=== PATIENT | female | born 1970 | race Caucasian/White ===

== ENCOUNTER 2020-07-06 16:56 | Emergency (ER) | payer OTHER, SELFPAY ==
[2020-07-06 17:00] VITALS: PULSE 115; RESP 18; O2SAT 99
--- NOTE | 2020-07-06 17:05 | CTR_ITS ---
PROCEDURE INFORMATION: Exam: CT Head Without Contrast Exam date and time: 07/06/2020 5:10 PM Age: 50 years old Clinical indication: Pain; Headache; Prior surgery; Additional info: PRITCHETT TECHNIQUE: Imaging protocol: Computed tomography of the head without contrast. Radiation optimization: All CT scans at this facility use at least one of these dose optimization techniques: automated exposure control; mA and/or kV adjustment per patient size (includes targeted exams where dose is matched to clinical indication); or iterative reconstruction. COMPARISON: CT Head wo IV contrast* [id number] 05/11/2019 9:20 PM RADIATION DOSE METRICS: Total DLP (mGy-cm): 561.5 FINDINGS: Brain: No acute intracranial hemorrhage, cerebral edema, or midline shift. Cerebral ventricles: No hydrocephalus. Bones/joints: No acute fracture. Paranasal sinuses: There is no acute sinusitis. Mastoid air cells: Visualized mastoid air cells are well aerated. Orbital cavity: Unremarkable as visualized. Vasculature: Aneurysm coils are noted in the right parasellar region. Soft tissues: Unremarkable. CT/CT head wo con* [id number] IMPRESSION: No acute intracranial abnormality. Radiation Dose CTDIVOL = (mGy): DLP = 561.5 (mGy-cm)
[2020-07-06 17:39] VITALS: BP 149/89; PULSE 115; RESP 20; O2SAT 98
[2020-07-06 17:45] LABS: Basophils % 0.4 %; Eosinophils % 0.5 %; Hematocrit 47.2 % (37.0-47.0); Hemoglobin 15.6 g/dL (11.5-15.3); Lymphocytes % 25.5 %; Mean Corpuscular HGB Conc 33.1 g/dL (30.0-36.0); Mean Corpuscular Hemoglobin 31.2 pg (28.0-34.0); Mean Corpuscular Volume 94.4 fL (81-99); Mean Platelet Volume 12.6 fL (7.4-10.4); Monocytes # 0.8 10^3/uL (0.2-0.9); Monocytes % 10.6 %; Neutrophils # 4.91 10^3/uL (1.8-7.7); Neutrophils % 62.9 %; Nucleated Red Blood Cells % 0 %; Platelet Count 139 10^3/cmm (130-400); Red Cell Distribution Width 13.2 % (12.1-15.1); White Blood Count 7.8 10^3/uL (4.0-10.0)
--- NOTE | 2020-07-06 17:47 | ED_ITS ---
HPI - Headache General: Chief Complaint: Headache Stated Complaint: HEAD PAIN/PREVIOUS ANEURISYM Time Seen by Provider: 07/06/20 17:25 Source: patient Mode of arrival: ambulatory Limitations: no limitations History of Present Illness: HPI Narrative: 50-year-old female has a history of a aneurysm roughly 3 years ago. States she started having a headache today got worse. States headache is now 9 out of 10. She had a coil placed for her aneurysm. She states she has an appointment in the morning with her neurosurgeon for an angiogram. She denies any worsening or improving factors. Denies any fever. Denies any vomiting or diarrhea. Associated symptoms: Deny chest pain, fever(s), nausea, rash or vomiting Review of Systems Const: Denies: fever(s), chills, body aches or change in appetite Eyes: Denies: blurry vision or eye discomfort ENMT: Denies: throat pain or dental pain Card: Denies: chest pain Resp: Denies: dyspnea GI: Denies: abdominal pain, nausea, vomiting or diarrhea : Denies: dysuria Musc: Denies: neck pain or back pain Skin/Breast: Denies: rash Neuro: Reports: headache(s) Psych: Denies: depression Jonnathan/Lymph: Denies: easy bruising All/Imm: Denies: urticaria Physical Exam Const: COMMON NORMALS: no acute distress, patient oriented x3 and healthy appearing HENMT: COMMON NORMALS: normocephalic and atraumatic HEAD & SCALP: normocephalic and atraumatic Eye: COMMON NORMALS: Equal, round and reactive pupils present and EOMs intact bilaterally PUPIL: Yes Equal, round and reactive pupils present Neck/C-Spine: COMMON NORMALS: full ROM and supple Chest: COMMONS NORMALS: normal inspection of the chest and normal palpation of entire chest wall Resp: COMMON NORMALS: normal respiratory effort, No retractions, No use of accessory muscles and clear to auscultation bilaterally AUSCULTATION: clear to auscultation bilaterally Cardio: COMMON NORMALS: regular rate, regular rhythm and No murmurs present (Cardio) RATE: regular rate RHYTHM: regular rhythm GI: COMMON NORMALS: Normal to inspection, nondistended, normoactive bowel sounds present, Soft to palpation, non-tender and no masses PALPATION: Yes Soft to palpation Extremity: COMMON NORMALS: normal to inspection and full ROM Neuro: COMMON NORMALS: patient oriented x3, moves all extremities and no focal motor deficits Psych: COMMON NORMALS: mental status grossly normal, Normal thought process present and cooperative THOUGHT PROCESS: Normal thought process present Skin: COMMON NORMALS: no rashes or lesions noted and no wounds GENERAL SKIN EXAM: no rashes or lesions noted Course Vital Signs: Vital signs: Vital Signs Pulse Rate 115 H 07/06/20 17:39 Respiratory Rate 20 H 07/06/20 17:39 Blood Pressure 149/89 07/06/20 17:39 Pulse Oximetry 98 07/06/20 17:39 MDM - Headache MDM Narrative: Medical decision making narrative: Patient presents here with a headache that is since resolved. Her CT here is normal. I offered CT angio to rule out aneurysmal bleed she refused states she feels improved and has an angiogram scheduled for the morning. She refusing other testing would like to go home and follow-up with her neurosurgeon. Her headache is resolved her blood pressure is normal. I informed if her headache returns she is return immediately. She understands agrees to plan. Lab Data: Labs: Lab Results 07/06/20 07/06/20 Range/Units 17:35 17:35 WBC 7.8 (4.0-10.0) 10^3/ uL RBC 5.00 (4.1-5.3) 10^6/u L Hgb 15.6 H (11.5-15.3) g/dL Hct 47.2 H (37.0-47.0) % MCV 94.4 (81-99) fL MCH 31.2 (28.0-34.0) pg MCHC 33.1 (30.0-36.0) g/dL RDW 13.2 (12.1-15.1) % Plt Count 139 (130-400) 10^3/c mm MPV 12.6 H (7.4-10.4) fL Neut % (Auto) 62.9 % Lymph % (Auto) 25.5 % [place] % (Auto) 10.6 % Eos % (Auto) 0.5 % Baso % (Auto) 0.4 % Neut # (Auto) 4.91 (1.8-7.7) 10^3/u L Lymph # (Auto) 2.0 (0.8-4.8) 10^3/u L [place] # (Auto) 0.8 (0.2-0.9) 10^3/u L Eos # (Auto) 0.0 (0.0-0.8) 10^3/u L Baso # (Auto) 0.0 (0.0-0.1) 10^3/u L Nucleated RBC % (a uto) 0 % Nucleated RBCs # 0.0 /100WBC Sodium 135 L (136-145) mmol/L Potassium 3.6 (3.5-5.1) mmol/L Chloride 99 (98-107) mmol/L Carbon Dioxide 23 (22-29) mmol/L Anion Gap 16.6 (5-19) BUN 12 (6-20) mg/dL Creatinine 0.6 (0.5-0.9) mg/dL GFR Calculation 106.3 (90-130) mL/min Glucose 102 (65-115) mg/dL Calculated Osmolal ity 280 L (285-295) mOsm/k g Calcium 9.6 (8.5-10.5) mg/dL Total Bilirubin 0.6 (0.15-1.2) mg/dL AST 20 (0-32) U/L ALT 11 (0-33) U/L Alkaline Phosphata se 77 (35-105) IU/L Total Protein 7.0 (6.6-8.7) g/dL Albumin 4.6 (3.5-5.2) g/dL Globulin 2.4 (1.3-4.6) g/dL Imaging Data^: CT Head: Attestation: I personally reviewed and interpreted this imaging study as follows: Radiologist's impression: [address] [address] [address] Scan Report Signed Patient: Reanna Muniz Unit #: [id number] : 1970 Age/Sex: 50 / F ADM Date: 07/06/20 Loc: ER Room/Bed: Attending Dr: Ordering Provider/Ordering MD: Jhonatan Bey MD Date of Service: 07/06/20 Procedure(s): CT head wo con* [id number] Accession Number(s): [id number] Report Number: [id number] PROCEDURE INFORMATION: Exam: CT Head Without Contrast Exam date and time: 07/06/2020 5:10 PM Age: 50 years old Clinical indication: Pain; Headache; Prior surgery; Additional info: PRITCHETT TECHNIQUE: Imaging protocol: Computed tomography of the head without contrast. Radiation optimization: All CT scans at this facility use at least one of these dose optimization techniques: automated exposure control; mA and/or kV adjustment per patient size (includes targeted exams where dose is matched to clinical indication); or iterative reconstruction. COMPARISON: CT Head wo IV contrast* [id number] 05/11/2019 9:20 PM RADIATION DOSE METRICS: Total DLP (mGy-cm): 561.5 FINDINGS: Brain: No acute intracranial hemorrhage, cerebral edema, or midline shift. Cerebral ventricles: No hydrocephalus. Bones/joints: No acute fracture. Paranasal sinuses: There is no acute sinusitis. Mastoid air cells: Visualized mastoid air cells are well aerated. Orbital cavity: Unremarkable as visualized. Vasculature: Aneurysm coils are noted in the right parasellar region. Soft tissues: Unremarkable. CT/CT head wo con* [id number] IMPRESSION: No acute intracranial abnormality. Discharge Plan Discharge Patient Disposition: Home Clinical Impression: Headache Qualifiers: Headache type: unspecified Headache chronicity pattern: unspecified pattern Intractability: not intractable Qualified Code(s): R51.9 - Headache, unspecified Condition: Stable Prescriptions: No Action Assured Tension Headache Relie 2 tab PO PRN RF: 0 multivitamin Tablet 1 tab PO DAILY PRN (Reason: UNKNOWN) RF: 0 aspirin 325 mg Tablet 325 mg PO PRN RF: 0 Discharge Orders: Discharge Order (Routine); Ordered 07/06/20 Ordered By: Jhonatan Bey Discharge Diet: Advance as tolerated Discharge Activity: Resume usual activity Patient Instructions: Acute Headache (ED) Coding Level of Care Code ED Operations [place] for Chg Fwd Exam Comprehensive
[2020-07-06] MEDS: diphenhydrAMINE 50 mg/mL SDV 1mL IVP (17:48)
[2020-07-06] MEDS: metoclopramide 5 mg/mL SDV 2 mL 10 MG IVP (17:48)
[2020-07-06 18:05] LABS: Alanine Aminotransferase 11 U/L (0-33); Albumin Level 4.6 g/dL (3.5-5.2); Alkaline Phosphatase 77 IU/L (35-105); Anion Gap 16.6 (5-19); Aspartate Amino Transferase 20 U/L (0-32); Blood Urea Nitrogen 12 mg/dL (6-20); Calcium 9.6 mg/dL (8.5-10.5); Carbon Dioxide 23 mmol/L (22-29); Chloride 99 mmol/L (98-107); Globulin 2.4 g/dL (1.3-4.6); Glomerular Filtration Rate 106.3 mL/min (90-130); Glucose 102 mg/dL (65-115); Osmolality Calculated 280 mOsm/kg (285-295); Potassium 3.6 mmol/L (3.5-5.1); Sodium 135 mmol/L (136-145); Total Bilirubin 0.6 mg/dL (0.15-1.2)
--- NOTE | 2020-07-06 18:18 | PC.NURSE ---
Feeling better after the medication
[2020-07-06 18:34] LABS: Slide Review Slide Review Perform
[2020-07-06 19:07] VITALS: BP 109/73; PULSE 102; RESP 18; TEMP 36.4; O2SAT 98
== END 2020-07-06 19:08 | disposition home or self-care (01) ==
PROVIDERS: Emergency Provider Emergency Medicine
DX: R51.9 Headache, unspecified (principal); Z79.82 Long term (current) use of aspirin; Z96.89 Presence of other specified functional implants
CPT/HCPCS: 12345; 70450; 80053; 85025; 96374; 96375; 99283; J1200; J2765

== ENCOUNTER 2020-12-13 01:35 | Emergency (ER) | payer OTHER, SELFPAY ==
[2020-12-13 01:43] VITALS: BP 159/98; PULSE 101; RESP 18; TEMP 36.5; O2SAT 98; BMI 21.9
--- NOTE | 2020-12-13 01:51 | W.ED.HA ---
HPI - Headache General: Chief Complaint: Headache Stated Complaint: migraine Time Seen by Provider: 12/13/20 01:37 Source: patient Mode of arrival: ambulatory Limitations: no limitations History of Present Illness: HPI Narrative: 50-year-old female patient presents to the emergency department with 2-day onset of migraine headache. She reports [id number] medication has not been effective. She reports photophobia, phonophobia. She reports classic migraine as other migraines experienced but more intense. She denies loss of consciousness, weakness of the extremities or neck pain. She denies fever or chills. She reports aura did occur, flashes of light everything turning bright. PRITCHETT is NOT the worst PRITCHETT of her life, she reports cerebral aneurysm several years ago with coil repair, last checkup approximately 4 to 6 months ago with good results. She reports this headache is not that of aneurysm type. MD elicited complaint: migraine Onset (ago): day(s) (2) Onset description: gradually Location: diffuse and band-like Severity: moderate Quality & Timing: aching, throbbing, dull, steady and squeezing Exacerbating factors: exertion, movement of head/neck, light and noise Relieving factors: rest and dark room Context: occurred at rest Associated symptoms: Reports nausea, photophobia and sound sensitivity; Deny chest pain, confusion, diaphoresis, fever(s), rash or vomiting Treatments prior to arrival: migraine medication Review of Systems General: Reports: 10 or more systems reviewed and unremarkable except in HPI and below Const: Denies: fever(s), chills or diaphoresis Eyes: Denies: blurry vision or eye redness ENMT: Denies: throat pain, dental pain or disequilibrium Card: Denies: chest pain, palpitations or irregular heart rhythm Resp: Denies: dyspnea, productive cough, non-productive cough or wheezing GI: Reports: nausea; Denies: abdominal pain, vomiting, dysphagia, heartburn, diarrhea or constipation : Denies: difficulty voiding or dysuria Musc: Denies: neck pain, back pain, joint pain or joint warmth Skin/Breast: Denies: rash or pruritus Neuro: Reports: headache(s); Denies: weakness in extremities, difficulty walking, confusion or behavioral changes Psych: Denies: anxiety or depression Jonnathan/Lymph: Denies: easy bruising [facility], [facility] ED PFSH: Medical History (Updated 12/13/20 @ 01:58 by GUEVARA Saavedra) Migraine Surgical History (Updated 12/13/20 @ 01:54 by GUEVARA Saavedra) Status post coil embolization of cerebral aneurysm Physical Exam Const: COMMON NORMALS: no acute distress, patient oriented x3 and alert GENERAL APPEARANCE: cooperative, well kempt and other (in pain) ORIENTATION/CONSCIOUSNESS: Yes awake, Yes oriented to person, Yes oriented to place and Yes oriented to time HENMT: COMMON NORMALS: normocephalic, atraumatic and Normal external nose present HEAD & SCALP: normal to inspection, normocephalic and atraumatic FACE & SINUS: normal facial exam, sinuses nontender, face symmetric and sinus tenderness NOSE: Normal external nose present MOUTH: Normal oral and palatal mucosa present, lip normal and tongue normal THROAT: posterior oropharynx normal, tonsils normal and uvula midline Eye: COMMON NORMALS: Equal, round and reactive pupils present and EOMs intact bilaterally GENERAL EYE: appearance normal, both eyes and all related structures PUPIL: Yes Equal, round and reactive pupils present DIRECT OPHTHALMOSCOPY: Yes photophobia Neck/C-Spine: COMMON NORMALS: full ROM, no lymphadenopathy and supple GENERAL: Yes normal visual inspection and Yes trachea midline CERVICAL SPINE: Yes cervical ROM normal, No pain with cervical ROM, No Cervical spine tenderness and No Paracervical muscle tenderness Lymph: LYMPHATIC: no lymphadenopathy noted Chest: COMMONS NORMALS: normal inspection of the chest and normal palpation of entire chest wall Resp: COMMON NORMALS: normal respiratory effort, No retractions, No use of accessory muscles and clear to auscultation bilaterally EFFORT & INSPECTION: Yes able to speak in complete sentences, No labored and No audible wheezes AUSCULTATION: clear to auscultation bilaterally and no wheezes Cardio: COMMON NORMALS: regular rate, regular rhythm, S1 normal heart sound present, S2 normal heart sound present and Peripheral pulses 2+ throughout RATE: regular rate RHYTHM: regular rhythm HEART SOUNDS: S1 normal heart sound present and S2 normal heart sound present PERIPHERAL PULSES: Peripheral pulses 2+ throughout GI: COMMON NORMALS: Normal to inspection, nondistended, normoactive bowel sounds present, Soft to palpation and non-tender INSPECTION: Yes normal to inspection PALPATION: Yes Soft to palpation : COMMON NORMALS: Yes no CVA tenderness BLADDER/KIDNEY EXAM: Yes no CVA tenderness Back/Pelvis: COMMON NORMALS: no CVA tenderness and thoracic and lumbar spine normal to inspection Extremity: COMMON NORMALS: normal to inspection, full ROM, capillary refill normal and no pedal edema GENERAL: Yes normal exam except as noted Neuro: HESHAM COMA SCALE: document GCS findings [place] coma scale eye opening: Spontaneous [place] coma scale verbal response: Orientated [place] coma scale motor response: Obey commands [place] coma scale total score: 15 COMMON NORMALS: patient oriented x3 and no focal motor deficits SENSORIUM/ORIENTATION: Yes alert, Yes oriented to person, Yes oriented to place and Yes oriented to time SPEECH: speech normal GAIT: Yes Normal gait present MOTOR EXAM: 5/5 motor strength present throughout Psych: COMMON NORMALS: mental status grossly normal, Normal thought process present and cooperative APPEARANCE: Yes well kempt ACTIVITY/MOTOR BEHAVIOR: Yes appropriate eye contact THOUGHT PROCESS: Normal thought process present Skin: COMMON NORMALS: no rashes or lesions noted, no wounds, turgor normal, no petechiae and no mottling GENERAL SKIN EXAM: no rashes or lesions noted, elasticity normal and turgor normal Course Vital Signs: Vital signs: Vital Signs Temperature 97.7 F 12/13/20 01:43 Pulse Rate 101 H 12/13/20 01:43 Respiratory Rate 18 12/13/20 01:43 Blood Pressure 159/98 12/13/20 01:43 Pulse Oximetry 98 12/13/20 01:43 MDM - Headache MDM Narrative: Medical decision making narrative: 50-year-old female patient presents to the emergency department with classic migraine headache, she reports this is her classic migraine headache, history of aneurysm but states headache today is not of that nature. She is neurologically intact, no neurological deficits, migraine cocktail administered with marked improvement of migraine pain. She is requesting to go home, wants to go to bed. She is requesting work excuse for today, work excuse was provided, she was instructed to return to the emergency department for the worst headache of her life, CT scan not completed today due to chronic nature of her migraine character. She reports aneurysm was recently checked with good positioning and does not feel CT is needed. Discharge Plan Discharge Patient Disposition: Home Clinical Impression: Migraine Qualifiers: Migraine type: with aura Status migrainosus presence: with status migrainosus Intractability: intractable Qualified Code(s): G43.111 - Migraine with aura, intractable, with status migrainosus Condition: Stable Prescriptions: No Action Assured Tension Headache Relie 2 tab PO PRN RF: 0 multivitamin Tablet 1 tab PO DAILY PRN (Reason: UNKNOWN) RF: 0 aspirin 325 mg Tablet 325 mg PO PRN RF: 0 Discharge Orders: Discharge ED (Routine); Ordered 12/13/20 Ordered By: Destiny Dodson Discharge Diet: Usual diet Discharge Activity: Limit activity as instructed Patient Instructions: Migraine Headache (ED), Opioid Safety Activity Restrictions/Additional Instructions: Rest at home today and tomorrow Return to the emergency department if you develop the worst headache of your life Follow-up with your primary care provider in 2 to 3 days if headache returns or if not feeling better No vigorous activity for the next 24 hours. Stand Alone Forms: Work/School Release Coding Level of Care Code ED Vtc Technician for Kemi Fwd Exam Comprehensive
[2020-12-13] MEDS: sodium chloride 0.9% 1,000 ML 999 ML IV (02:01)
[2020-12-13] MEDS: diphenhydrAMINE 50 mg/mL SDV 1mL 25 MG IVP (02:06)
[2020-12-13] MEDS: dexamethasone 4 mg/mL INJ 8 MG IVP (02:06)
[2020-12-13] MEDS: ketorolac 30 mg/mL INJ IVP (02:06)
[2020-12-13] MEDS: metoclopramide 5 mg/mL SDV 2 mL 10 MG IVP (02:06)
[2020-12-13 03:15] VITALS: BP 115/70; PULSE 78; RESP 16; O2SAT 97
== END 2020-12-13 03:16 | disposition home or self-care (01) ==
PROVIDERS: Emergency Provider Nurse Practitioner Family
DX: G43.111 Migraine with aura, intractable, with status migrainosus (principal); Z79.82 Long term (current) use of aspirin
CPT/HCPCS: 96361; 96374; 96375; 99283; J1100; J1200; J1885; J2765; J7030

== ENCOUNTER 2021-01-12 22:11 | Emergency (ER) | payer OTHER, SELFPAY ==
[2021-01-12 22:25] VITALS: BP 144/80; PULSE 74; RESP 17; TEMP 36.6; O2SAT 100; BMI 17.7
--- NOTE | 2021-01-12 22:26 | XRR_ITS ---
PROCEDURE INFORMATION: Exam: XR Chest Exam date and time: 01/12/2021 10:27 PM Age: 50 years old Clinical indication: Sternal or substernal pain; Patient HX: Chest pain 06/04, smoker; Additional info: Cp TECHNIQUE: Imaging protocol: XR of the chest. Views: 1 view. COMPARISON: No relevant prior studies available. FINDINGS: Lungs: Unremarkable. No consolidation. Pleural spaces: Unremarkable. No pleural effusion. No pneumothorax. Heart/Mediastinum: Unremarkable. No cardiomegaly. Bones/joints: Unremarkable. XR/XR chest 1V portable [id number] IMPRESSION: No acute findings.
--- NOTE | 2021-01-12 23:01 | CTR_ITS ---
PROCEDURE INFORMATION: Exam: CT Head Without Contrast Exam date and time: 01/12/2021 11:02 PM Age: 50 years old Clinical indication: Pain; Syncope and collapse; Prior surgery; Surgery type: Aneurysm coil. ; Patient HX: Syncope. C/O headache with n/v. ; Additional info: PRITCHETT TECHNIQUE: Imaging protocol: Computed tomography of the head without contrast. Radiation optimization: All CT scans at this facility use at least one of these dose optimization techniques: automated exposure control; mA and/or kV adjustment per patient size (includes targeted exams where dose is matched to clinical indication); or iterative reconstruction. COMPARISON: CT Head wo IV contrast* [id number] 05/11/2019 9:20 PM RADIATION DOSE METRICS: Total DLP (mGy-cm): 724.65 FINDINGS: Brain: No intracranial hemorrhage. No focal mass. No mass effect on the brain. No midline shift of brain. [place] matter and white matter interfaces are preserved. No focal areas of acute brain ischemia. Cerebral ventricles: No ventriculomegaly. Bones/joints: Endovascular coils are present at the right lateral margin of the cervical is. Paranasal sinuses: Visualized sinuses are unremarkable. No fluid levels. Mastoid air cells: Visualized mastoid air cells are well aerated. Soft tissues: Unremarkable. CT/CT head wo con* [id number] IMPRESSION: 1. No acute intracranial abnormality 2. No changes from comparison Radiation Dose CTDIVOL = (mGy): DLP = 724.65 (mGy-cm)
[2021-01-12 23:10] VITALS: PULSE 72; O2SAT 99
[2021-01-12] MEDS: ondansetron 2 mg/ML SDV 2 mL 4 MG IVP (23:18)
[2021-01-12 23:19] VITALS: RESP 22; O2SAT 99
[2021-01-12 23:19] LABS: Basophils % 0.2 %; Hematocrit 52.1 % (37.0-47.0); Hemoglobin 17.5 g/dL (11.5-15.3); Lymphocytes # 0.7 10^3/uL (0.8-4.8); Lymphocytes % 6.2 %; Mean Corpuscular HGB Conc 33.6 g/dL (30.0-36.0); Mean Corpuscular Hemoglobin 30.6 pg (28.0-34.0); Mean Corpuscular Volume 91.1 fL (81-99); Mean Platelet Volume 12.1 fL (7.4-10.4); Monocytes # 0.3 10^3/uL (0.2-0.9); Monocytes % 2.5 %; Neutrophils # 10.78 10^3/uL (1.8-7.7); Neutrophils % 90.1 %; Nucleated Red Blood Cells % 0 %; Platelet Count 172 10^3/cmm (130-400); Red Blood Count 5.72 10^6/uL (4.1-5.3); Red Cell Distribution Width 13.5 % (12.1-15.1)
[2021-01-12] MEDS: morphine 4 mg/mL SDV 1 mL IVP (23:19)
--- NOTE | 2021-01-12 23:19 | ED_ITS ---
HPI - Chest Pain General: Chief Complaint: Chest Pain Stated Complaint: cp/chest tightness Time Seen by Provider: 01/12/21 22:26 Source: patient Mode of arrival: ambulatory Limitations: no limitations History of Present Illness: HPI narrative: 50-year-old female states she had a seizure roughly 2 to 3 hours ago. Lasted roughly 15 to 30 seconds. She has no history of seizures in the past and this is a first-time seizure. States since then she been having a sharp pain in her chest. States it is worse with movement or palpation. She denies any fevers. Denies any head injury. Denies any headache. Associated symptoms: Deny abdominal pain, dyspnea, fever(s), nausea or vomiting Review of Systems Const: Denies: fever(s), chills, body aches or change in appetite Eyes: Denies: blurry vision or eye discomfort ENMT: Denies: throat pain or dental pain Card: Reports: chest pain Resp: Denies: dyspnea GI: Denies: abdominal pain, nausea, vomiting or diarrhea : Denies: dysuria Musc: Denies: neck pain or back pain Skin/Breast: Denies: rash Neuro: Reports: seizure-like activity; Denies: headache(s) Psych: Denies: depression Jonnathan/Lymph: Denies: easy bruising All/Imm: Denies: urticaria PFSH ED PFSH: Medical History (Updated 01/13/21 @ 00:07 by Jhonatan Bey MD) Migraine Surgical History (Updated 12/13/20 @ 01:54 by GUEVARA Saavedra) Status post coil embolization of cerebral aneurysm Physical Exam Const: COMMON NORMALS: no acute distress, patient oriented x3 and healthy appearing HENMT: COMMON NORMALS: normocephalic and atraumatic HEAD & SCALP: normocephalic and atraumatic Eye: COMMON NORMALS: Equal, round and reactive pupils present and EOMs intact bilaterally PUPIL: Yes Equal, round and reactive pupils present Neck/C-Spine: COMMON NORMALS: full ROM and supple Chest: COMMONS NORMALS: normal inspection of the chest and normal palpation of entire chest wall Resp: COMMON NORMALS: normal respiratory effort, No retractions, No use of accessory muscles and clear to auscultation bilaterally AUSCULTATION: clear to auscultation bilaterally Cardio: COMMON NORMALS: regular rate, regular rhythm and No murmurs present (Cardio) RATE: regular rate RHYTHM: regular rhythm GI: COMMON NORMALS: Normal to inspection, nondistended, normoactive bowel sounds present, Soft to palpation, non-tender and no masses PALPATION: Yes Soft to palpation Extremity: COMMON NORMALS: normal to inspection and full ROM Neuro: COMMON NORMALS: patient oriented x3, moves all extremities and no focal motor deficits Psych: COMMON NORMALS: mental status grossly normal, Normal thought process present and cooperative THOUGHT PROCESS: Normal thought process present Skin: COMMON NORMALS: no rashes or lesions noted and no wounds GENERAL SKIN EXAM: no rashes or lesions noted Course Vital Signs: Vital signs: Vital Signs Temperature 97.9 F 01/12/21 22:25 Pulse Rate 72 01/12/21 23:40 Respiratory Rate 22 H 01/12/21 23:19 Blood Pressure 144/80 01/12/21 22:25 Pulse Oximetry 98 01/12/21 23:40 MDM - Chest Pain MDM Narrative: Medical decision making narrative: Patient presents here with a new onset seizure likely causing her to have chest wall pain. Her troponin EKG here are normal no signs of acute coronary syndrome. Patient has no signs of pulmonary Chaplin. She is to follow-up PCP in 2 to 4 days return if worsening. She understands agrees to plan. Lab Data: Labs: Lab Results 01/12/21 01/12/21 01/12/21 Range/Units 23:12 23:12 23:12 WBC 12.0 H (4.0-10.0) 10^3/ uL RBC 5.72 H (4.1-5.3) 10^6/u L Hgb 17.5 H (11.5-15.3) g/dL Hct 52.1 H (37.0-47.0) % MCV 91.1 (81-99) fL MCH 30.6 (28.0-34.0) pg MCHC 33.6 (30.0-36.0) g/dL RDW 13.5 (12.1-15.1) % Plt Count 172 (130-400) 10^3/c mm MPV 12.1 H (7.4-10.4) fL Neut % (Auto) 90.1 % Lymph % (Auto) 6.2 % [place] % (Auto) 2.5 % Eos % (Auto) 0.0 % Baso % (Auto) 0.2 % Neut # (Auto) 10.78 H (1.8-7.7) 10^3/u L Lymph # (Auto) 0.7 L (0.8-4.8) 10^3/u L [place] # (Auto) 0.3 (0.2-0.9) 10^3/u L Eos # (Auto) 0.0 (0.0-0.8) 10^3/u L Baso # (Auto) 0.0 (0.0-0.1) 10^3/u L Nucleated RBC % (a uto) 0 % Nucleated RBCs # 0.0 /100WBC Sodium 140 (136-145) mmol/L Potassium 3.9 (3.5-5.1) mmol/L Chloride 100 (98-107) mmol/L Carbon Dioxide 22 (22-29) mmol/L Anion Gap 21.9 H (5-19) BUN 11 (6-20) mg/dL Creatinine 0.7 (0.5-0.9) mg/dL GFR Calculation 88.9 L (90-130) mL/min Glucose 165 H (65-115) mg/dL Calculated Osmolal ity 293 (285-295) mOsm/k g Calcium 9.7 (8.5-10.5) mg/dL Total Bilirubin 0.6 (0.15-1.2) mg/dL AST 15 (0-32) U/L ALT 12 (0-33) U/L Alkaline Phosphata se 84 (35-105) IU/L Troponin T Baselin e 6 (0-10) ng/L Total Protein 7.4 (6.6-8.7) g/dL Albumin 5.3 H (3.5-5.2) g/dL Globulin 2.1 (1.3-4.6) g/dL Imaging Data^: CXR: Attestation: I personally reviewed and interpreted this imaging study as follows: My impression: no acute abnormality CT Head: Radiologist's impression: [address] [address] [address] Scan Report Signed Patient: Reanna Muniz Berto Unit #: [id number] : 1970 Age/Sex: 50 / F ADM Date: 01/12/21 Loc: ER Room/Bed: Attending Dr: Ordering Provider/Ordering MD: Jhonatan Bey MD Date of Service: 01/12/21 Procedure(s): CT head wo con* [id number] Accession Number(s): [id number] Report Number: [id number] PROCEDURE INFORMATION: Exam: CT Head Without Contrast Exam date and time: 01/12/2021 11:02 PM Age: 50 years old Clinical indication: Pain; Syncope and collapse; Prior surgery; Surgery type: Aneurysm coil. ; Patient HX: Syncope. C/O headache with n/v. ; Additional info: PRITCHETT TECHNIQUE: Imaging protocol: Computed tomography of the head without contrast. Radiation optimization: All CT scans at this facility use at least one of these dose optimization techniques: automated exposure control; mA and/or kV adjustment per patient size (includes targeted exams where dose is matched to clinical indication); or iterative reconstruction. COMPARISON: CT Head wo IV contrast* [id number] 05/11/2019 9:20 PM RADIATION DOSE METRICS: Total DLP (mGy-cm): 724.65 FINDINGS: Brain: No intracranial hemorrhage. No focal mass. No mass effect on the brain. No midline shift of brain. Molina matter and white matter interfaces are preserved. No focal areas of acute brain ischemia. Cerebral ventricles: No ventriculomegaly. Bones/joints: Endovascular coils are present at the right lateral margin of the cervical is. Paranasal sinuses: Visualized sinuses are unremarkable. No fluid levels. Mastoid air cells: Visualized mastoid air cells are well aerated. Soft tissues: Unremarkable. CT/CT head wo con* [id number] IMPRESSION: 1. No acute intracranial abnormality 2. No changes from comparison EKG Data^: EKG 1: Attestation: I personally reviewed and interpreted this EKG as follows: EKG interpretation date: 01/12/21 EKG interpretation time: 22:29 Interpretation: nsr hr [address] or t wave abnormalities qrs 88 qtc 417 Discharge Plan Discharge Patient Disposition: Home Clinical Impression: Atypical chest pain, Seizure Condition: Stable Prescriptions: New hydrocodone-acetaminophen 5-325 mg tablet 1 tab PO Q6H PRN (Reason: pain) Qty: 14 RF: 0 No Action Assured Tension Headache Relie 2 tab PO PRN RF: 0 multivitamin Tablet 1 tab PO DAILY PRN (Reason: UNKNOWN) RF: 0 aspirin 325 mg Tablet 325 mg PO PRN RF: 0 Discharge Orders: Discharge ED (Routine); Ordered 01/13/21 Ordered By: Jhonatan Bey Discharge Diet: Advance as tolerated Discharge Activity: Resume usual activity Patient Instructions: Chest Pain (ED), New-Onset Seizure in Adults (ED), Opioid Safety Coding Level of Care Code ED Packing And Final Assembly Supervisor for Juanyg Fwd Exam Comprehensive
[2021-01-12 23:40] VITALS: PULSE 72; O2SAT 98
[2021-01-12 23:40] LABS: Slide Review Slide Review Perform
[2021-01-12 23:41] LABS: Alanine Aminotransferase 12 U/L (0-33); Albumin Level 5.3 g/dL (3.5-5.2); Alkaline Phosphatase 84 IU/L (35-105); Aspartate Amino Transferase 15 U/L (0-32); Blood Urea Nitrogen 11 mg/dL (6-20); Calcium 9.7 mg/dL (8.5-10.5); Carbon Dioxide 22 mmol/L (22-29); Chloride 100 mmol/L (98-107); Globulin 2.1 g/dL (1.3-4.6); Glomerular Filtration Rate 88.9 mL/min (90-130); Glucose 165 mg/dL (65-115); Osmolality Calculated 293 mOsm/kg (285-295); Sodium 140 mmol/L (136-145); Total Bilirubin 0.6 mg/dL (0.15-1.2); Total Protein 7.4 g/dL (6.6-8.7)
[2021-01-12 23:44] LABS: Troponin(5th) Baseline 6 ng/L (0-10)
[2021-01-12 23:51] LABS: Anion Gap 21.9 (5-19); Potassium 3.9 mmol/L (3.5-5.1)
--- NOTE | 2021-01-13 00:24 | PC.NURSE ---
pt was dispensed #1 hydrocodone 5/325mg to take as directed
--- NOTE | 2021-01-13 04:26 | ECG_ITS ---
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 Measurements Intervals [place] Rate: 69 P: 82 NM: 166 QRS: -9 QRSD: 92 T: 52 QT: 407 QTc: 438 Interpretive Statements SINUS RHYTHM INCOMPLETE RIGHT BUNDLE BRANCH BLOCK [90+ ms QRS DURATION, TERMINAL R IN V1/V2, 40+ ms S IN I/aVL/V4/V5/V6] Poor R wave progression Compared to ECG 11/22/2015 13:07:10 Incomplete right bundle-branch block now present Electronically Signed On 01-13-2021 0:11:23 CDT by Tata Bond M.D. [email or web address]
== END 2021-01-13 00:25 | disposition home or self-care (01) ==
PROVIDERS: Emergency Provider Emergency Medicine
DX: R07.89 Other chest pain (principal); R56.9 Unspecified convulsions; Z79.82 Long term (current) use of aspirin
CPT/HCPCS: 70450; 71045; 80053; 84484; 85025; 93005; 96374; 96375; 99284; J2270; J2405

== ENCOUNTER 2022-01-30 21:41 | Inpatient (IN) | payer OTHER, SELFPAY ==
[2022-01-30 21:45] VITALS: BP 181/121; PULSE 131; RESP 16; TEMP 36.6; O2SAT 97; BMI 20.1
--- NOTE | 2022-01-30 22:00 | XRR_ITS ---
PROCEDURE INFORMATION: Exam: XR Chest Exam date and time: 01/30/2022 10:22 PM Age: 51 years old Clinical indication: Device placement; Ett placement (vent status); Additional info: AMS TECHNIQUE: Imaging protocol: XR of the chest. Views: 1 view. COMPARISON: CR XR chest 1V portable [id number] 01/12/2021 10:42 PM FINDINGS: Tubes, catheters and devices: Endotracheal tube in proper positioning 4 cm above the pravin. Lungs: Hyperinflated lungs with scattered calcified granulomas. No consolidation. Pleural spaces: No pleural effusion. No pneumothorax. Heart/Mediastinum: No cardiomegaly. Bones/joints: Visualized osseous structures are intact. XR/XR chest 1V portable [id number] IMPRESSION: Endotracheal tube in expected positioning. No acute findings.
--- NOTE | 2022-01-30 22:00 | ECG_ITS ---
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 Measurements Intervals [place] Rate: 119 P: 91 MN: 148 QRS: -44 QRSD: 81 T: 77 QT: 298 QTc: 420 Interpretive Statements SINUS TACHYCARDIA INDETERMINATE AXIS SEPTAL MYOCARDIAL INFARCTION , PROBABLY OLD [40+ ms Q WAVE IN V1/V2] Compared to ECG 01/13/2021 00:01:02 Indeterminate axis now present Myocardial infarct finding now present Sinus rhythm no longer present Incomplete right bundle-branch block no longer present Poor R-wave progression no longer present Electronically Signed On 01-31-2022 20:09:18 CDT by Tata Bond M.D. [id number]
--- NOTE | 2022-01-30 22:00 | CTR_ITS ---
PROCEDURE INFORMATION: Exam: CT Head Without Contrast Exam date and time: 01/30/2022 11:28 PM Age: 51 years old Clinical indication: Alteration of consciousness; Other: Unknown; Prior surgery; Patient HX: AMS, hypoxic, HX of cerebral aneurysm. PT intubated and unresponsive TECHNIQUE: Imaging protocol: Computed tomography of the head without contrast. Radiation optimization: All CT scans at this facility use at least one of these dose optimization techniques: automated exposure control; mA and/or kV adjustment per patient size (includes targeted exams where dose is matched to clinical indication); or iterative reconstruction. COMPARISON: CT head wo con* [id number] 01/12/2021 11:45 PM RADIATION DOSE METRICS: Total DLP (mGy-cm): 687.56 FINDINGS: Tubes, catheters and devices: Right parasellar endovascular coils again seen. Brain: Normal. No hemorrhage. Unremarkable white matter. No mass effect. Cerebral ventricles: No ventriculomegaly. Paranasal sinuses: Visualized sinuses are unremarkable. No fluid levels. Mastoid air cells: Visualized mastoid air cells are well aerated. Bones/joints: Unremarkable. No acute fracture. Soft tissues: Unremarkable. CT/CT head wo con* [id number] IMPRESSION: Negative for intracranial hemorrhage or mass.
[2022-01-30 22:09] LABS: Basophils % 0.4 %; Eosinophils % 0.1 %; Hematocrit 52.3 % (37.0-47.0); Hemoglobin 16.8 g/dL (11.5-15.3); Lymphocytes # 1.8 10^3/uL (0.8-4.8); Lymphocytes % 21.7 %; Mean Corpuscular HGB Conc 32.1 g/dL (30.0-36.0); Mean Corpuscular Volume 96.5 fl (81-99); Mean Platelet Volume 11.9 fL (7.4-10.4); Monocytes # 0.3 10^3/uL (0.2-0.9); Monocytes % 3.9 %; Neutrophils # 6.21 10^3/uL (1.8-7.7); Neutrophils % 73.5 %; Nucleated Red Blood Cells % 0 %; Platelet Count 168 10^3/cmm (130-400); Red Blood Count 5.42 10^6/uL (4.1-5.3); Red Cell Distribution Width 14.1 % (12.1-15.1); White Blood Count 8.4 10^3/uL (4.0-10.0)
--- NOTE | 2022-01-30 22:10 | W.ED.AMS ---
HPI - Altered Mental Status General: Chief Complaint: Altered Mental Status Stated Complaint: siezure Time Seen by Provider: 01/30/22 21:59 Limitations: altered mental status History of Present Illness: Ms. Muniz is a 51-year-old lady unclear past medical history presents to the emergency department due to altered mental status. History is limited by patient's current mental state. Later supplemental information provided by is that patient has been feeling somewhat unwell for the past few days though no specific symptoms identified. Apparently she got up and walked towards the door and subsequently turned around and essentially was speaking nonsensical noises towards him. She wants carried in by her and subsequently and security carried the patient into the room. Review of Systems General: Reports: ROS unobtainable due to mental status PFSH ED PFSH: Medical History Migraine Surgical History Status post coil embolization of cerebral aneurysm Physical Exam Const: EXAM LIMITATIONS: altered mental status GENERAL APPEARANCE: combative NUTRITIONAL APPEARANCE: underweight HENMT: COMMON NORMALS: normocephalic and atraumatic HEAD & SCALP: normocephalic and atraumatic OTHER: Poor dentition, blood in the oropharynx possibly from tongue bite or dental injury Eye: COMMON NORMALS: conjunctivae normal CONJUNCTIVA: Yes conjunctivae normal SCLERA: sclerae normal Neck/C-Spine: COMMON NORMALS: supple GENERAL: Yes trachea midline Resp: COMMON NORMALS: normal respiratory effort and clear to auscultation bilaterally EFFORT & INSPECTION: Yes able to speak in complete sentences AUSCULTATION: clear to auscultation bilaterally Cardio: COMMON NORMALS: regular rhythm RATE: tachycardic RHYTHM: regular rhythm GI: COMMON NORMALS: Soft to palpation PALPATION: Yes Soft to palpation and No Tenderness to palpation present (GI) PERCUSSION: normal to percussion Extremity: GENERAL: Yes normal exam except as noted and No edema Neuro: COMMON NORMALS: moves all extremities SENSORIUM/ORIENTATION: Yes Orientation impaired Psych: THOUGHT PROCESS: confused ATTENTION/CONCENTRATION: Yes attention grossly impaired INSIGHT: Poor insight present (Psych) JUDGEMENT: Poor judgement present (Psych) Procedures Intubation Time out performed: Yes sedative: Etomidate Mg Given: 40 paralytic: Vecuronium Mg Given: 10 Laryngoscope: fiber optic video scope ET Tube Size: 8 ET Tube Uncuffed: No Tube Secured Depth (cm): 21 Tube Secured Location: lips Tube Placement Confirmation: visualized tube passing through cords, equal breath sounds bilaterally, no breath sounds over epigastrium and confirmation by capnometry (Color device) Patient Tolerated Procedure: well and no complications Intubation Complications: none Course ED course: - The patient was initially seen by Dr. Vigil who found the patient to be significantly combative and ordered ketamine for chemical restraint. I did observe during this time that the patient was combative and not redirectable with attempted discussion. - Sometime later I was asked to evaluate the patient as she became hypoxic requiring supplemental oxygen and had to lift. Dr. Vigil was with another critical patient and therefore I took over patient care. - Patient was seen and evaluated by me at bedside - Initial evaluation notable for patient ill-appearing with supplemental oxygen in place. She is not adequately oxygenating despite supplemental oxygen and given mental status not protecting her airway. There is no evidence of laryngospasm or adventitious upper airway noise. - Given mental status with acute hypoxic respiratory failure and make a decision to intubate the patient. - Patient intubated successfully and tolerated procedure well. - Labs notable for no leukocytosis, mild hemoconcentration. Metabolic panel with no acute electrolyte derangement to explain symptoms, bicarb is decreased with increased anion gap. Lactic acid is significantly elevated. Urinalysis not concerning for urinary tract infection but 1+ bacteria present nitrate negative leukocyte esterase negative. - Imaging notable for no significant abnormality identified on CT head, chest, abdomen, pelvis to explain patient's symptoms. Chest x-ray is reviewed. - Upon serial reexamination after treatment the patient was improved with improvement in vital signs. The patient did not require fairly significant doses of sedation. In addition to fentanyl and propofol I did bolus and add Versed drip. - Based on patient history, evaluation, and testing as interpreted the most likely cause of the patient's condition is altered mental status of unclear etiology with acute hypoxic respiratory failure. - The results of ED evaluation were discussed with the patient including plan for admission due to requirement for level of care not available if discharged to prevent significant worsening/deterioration. - Admitting service was contacted and Dr Álvarez with the hospitalist service agreed to admit the patient - Patient was admitted without further deterioration or significant events. Note: Click bubbles or prepopulated clarke in note writing are used for assistance with data collection and billing and are inherently more limited than narrative and other text portions of this note. Please use narrative for additional clinical history and defer to narrative/free test for any case of contradictory information. If information appears in only free text or click bubble it should be considered present or absent as reported. Please contact note marketing underwriter for clarifications of clinical information or contradictory information. MDM is a brief summary, contradictory or erroneous seeming information should be clarified and full note should be reviewed. Vital Signs: Vital signs: Vital Signs Temperature 96.9 F L 01/31/22 05:30 Pulse Rate 87 01/31/22 16:00 Respiratory Rate 13 01/31/22 17:48 Blood Pressure 128/85 01/31/22 16:00 Pulse Oximetry 92 01/31/22 17:48 MDM - Altered Mental Status Medical Decision Making 51-year-old lady with possible history of substance abuse and one prior seizure presenting with acute alteration in mental status. Patient initially combative however subsequently developed respiratory failure with hypoxemia. Patient intubated and admitted to ICU for further management. Medical Records I reviewed the patient's medical records. Lab Data I reviewed the patient's lab results. : 01/31/22 11:55 01/31/22 09:[address] 01/30/22 22:00 IMPRESSION: Negative for intracranial hemorrhage or mass. Cervical Spine CT 01/30/22 22:22 IMPRESSION: No acute findings. Chest/Abdomen/Pelvis CT 01/30/22 22:24 IMPRESSION: 1. Mild right basilar atelectasis and/or pneumonia. 2. Endotracheal tube in place. 3. Enteric tube looped over the mid and distal esophagus with the tip not visualized, superior to the supraclavicular notch, beyond the CT chest [id number]. 4. No pulmonary embolus or aortic dissection. IMPRESSION: Air within the urinary bladder which may be secondary to Kowalski balloon catheter placement. Chest X-Ray 01/31/22 00:58 IMPRESSION: 1. Enteric tube tip is over the body of the stomach (mid stomach). 2. Endotracheal tube tip over the distal trachea, 2.3 cm proximal to the pravin. Laboratory Results WBC 8.4 10^3/uL (4.0-10.0) 01/30/22 22:02 RBC 5.42 10^6/uL (4.1-5.3) H 01/30/22 22:02 Hgb 16.8 g/dL (11.5-15.3) H 01/30/22 22:02 Hct 52.3 % (37.0-47.0) H 01/30/22 22:02 MCV 96.5 fl (81-99) 01/30/22 22:02 MCH 31.0 pg (28.0-34.0) 01/30/22 22: MCHC 32.1 g/dL (30.0-36.0) 01/30/22 22: RDW 14.1 % (12.1-15.1) 01/30/22 22: Plt Count 168 10^3/cmm (130-400) 01/30/22 22:02 MPV 11.9 fL (7.4-10.4) H 01/30/22 22:02 Neut % (Auto) 73.5 % 01/30/22 22: Lymph % (Auto) 21.7 % 01/30/22 22:02 [place] % (Auto) 3.9 % 01/30/22 22: Eos % (Auto) 0.1 % 01/30/22 22: Baso % (Auto) 0.4 % 01/30/22 22:02 Neut # (Auto) 6.21 10^3/uL (1.8-7.7) 01/30/22 22: Lymph # (Auto) 1.8 10^3/uL (0.8-4.8) 01/30/22 22:02 [place] # (Auto) 0.3 10^3/uL (0.2-0.9) 01/30/22 22:02 Eos # (Auto) 0.0 10^3/uL (0.0-0.8) 01/30/22 22: Baso # (Auto) 0.0 10^3/uL (0.0-0.1) 01/30/22 22:02 Nucleated RBC % (auto) 0 % 01/30/22 22: Nucleated RBCs # 0.0 /100WBC 01/30/22 22:02 Specimen Type Arterial 01/30/22 22:23 Sample Site Radial, right 01/30/22 22:23 ABG pH 7.39 (7.35-7.45) 01/30/22 22:23 ABG pCO2 37.3 mmHg (35-45) 01/30/22 22:23 ABG pO2 528.0 mmHg (80.0-100.0) H 01/30/22 22:23 ABG HCO3 22.6 mmol/L (22-26) 01/30/22 22: ABG Base Excess -1.9 mmol/L (-2.0-2.0) 01/30/22 22:23 Saqib Test Pos 01/30/22 22:23 Hematocrit 47.7 % (37-47) H 01/30/22 22:23 O2 Delivery Device Vent 01/30/22 22:23 FiO2 100.0 % 01/30/22 22:23 Tidal Volume 0.40 01/30/22 22:23 PEEP 5.0 cmH20 01/30/22 22:23 Fire And Explosion Investigator ID [email or web address] 01/30/22 22:23 Sodium 135 mmol/L (136-145) L 01/31/22 01:20 Potassium 3.8 mmol/L (3.5-5.1) 01/31/22 01:20 Chloride 103 mmol/L (98-107) 01/31/22 01:20 Carbon Dioxide 23 mmol/L (22-29) 01/31/22 01:20 Anion Gap 12.8 (5-19) 01/31/22 01:20 BUN 10 mg/dL (6-20) 01/31/22 01:20 Creatinine 0.6 mg/dL (0.5-0.9) 01/31/22 01:20 GFR Calculation 105.8 mL/min (90-130) 01/31/22 01:20 Glucose 120 mg/dL (65-115) H 01/31/22 01:20 Calculated Osmolality 280 mOsm/kg (285-295) L 01/31/22 01:20 Lactic Acid 8.2 mmol/L (0.5-2.2) H* 01/30/22 22:00 Lactic Acid (Sepsis) 1.4 mmol/L (0.5-2.2) 01/31/22 01:20 Calcium 8.0 mg/dL (8.5-10.5) L 01/31/22 01:20 Total Bilirubin 0.9 mg/dL (0.15-1.2) 01/31/22 01:20 AST 18 U/L (0-32) 01/31/22 01:20 ALT 11 U/L (0-33) 01/31/22 01:20 Alkaline Phosphatase 69 IU/L (35-105) 01/31/22 01:20 Creatine Kinase 341 U/L (26-192) H* 01/31/22 01:20 Total Protein 5.9 g/dL (6.6-8.7) L D 01/31/22 01:20 Albumin 4.1 g/dL (3.5-5.2) 01/31/22 01:20 Globulin 1.8 g/dL (1.3-4.6) 01/31/22 01:20 Procalcitonin 0.02 ng/mL (0-0.5) 01/31/22 01:20 TSH 1.64 uIU/mL (0.27-4.20) 01/30/22 22:02 Prolactin 6.01 ng/mL (4.8-23.3) 01/31/22 01:20 HCG, Qual Negative (Negative) 01/30/22 22:14 Urine Color Yellow (Yellow) 01/30/22 22:14 Urine Appearance Sl hazy (CLEAR) 01/30/22 22:14 Urine pH 5 (5-7) 01/30/22 22:14 Ur Specific [place] 1.030 (1.005-1.030) 01/30/22 22:14 Urine Protein 2+ (Negative) H 01/30/22 22:14 Urine Glucose (UA) Norm (Normal) 01/30/22 22:14 Urine Ketones 1+ (Negative) H 01/30/22 22:14 Urine Blood 2+ (Negative) H 01/30/22 22:14 Urine Nitrate Negative (Negative) 01/30/22 22:14 Urine Bilirubin Neg (Negative) 01/30/22 22:14 Urine Urobilinogen Norm mg/dL (Negative) 01/30/22 22:14 Ur Leukocyte Esterase Negative (Negative) 01/30/22 22:14 Urine RBC 5-10 /hpf (0-2) H 01/30/22 22:14 Urine WBC 0-4 /hpf (0-5) H 01/30/22 22:14 Ur Squamous Epith Cells 0-4 /hpf (0-5) H 01/30/22 22:14 Amorphous Sediment Not Reportable 01/30/22 22:14 Urine Bacteria 1+ /hpf (NONE) H 01/30/22 22:14 Urine Mucus 2+ /hpf 01/30/22 22:14 Salicylates < 0.3 mg/dL (3-10) L 01/30/22 22:02 Urine Opiates Screen Negative ng/mL (Negative) 01/30/22 22:14 Acetaminophen < 5.0 ug/mL (10-30) L 01/30/22 22:02 Ur Barbiturates Screen Negative ng/mL (Negative) 01/30/22 22:14 Ur Phencyclidine Scrn Negative ng/mL (Negative) 01/30/22 22:14 Ur Amphetamines Screen Positive ng/mL (Negative) H 01/30/22 22:14 U Benzodiazepines Scrn Negative ng/mL (Negative) 01/30/22 22:14 Urine Cocaine Screen Negative ng/mL (Negative) 01/30/22 22:14 U Marijuana (THC) Screen Negative ng/mL (Negative) 01/30/22 22:14 Ethyl Alcohol < 10 mg/dL (0-10) 01/30/22 22:02 Critical Care Time Critical Care Time: Critical Care Time: Yes Total Critical Care Time: 80 Attestation: Due to a high probability of clinically significant, possibly life threatening deterioration, the patient required my highest level of attention and preparedness to intervene emergently and I personally spent this critical care time directly and personally managing the patient. This critical care time included obtaining a history; examining the patient; pulse oximetry; ordering and review of laboratory and imaging studies; arranging urgent treatment with development of a management plan; evaluation of patient's response to treatment; frequent reassessment; and, discussions with other providers as applicable. It was exclusive of separately billable procedures. Discharge Plan Discharge Patient Disposition: Admitted As Inpatient Admit Provider: Selvin Álvarez Clinical Impression: Altered mental status, Acute respiratory failure with hypoxia, Acidosis, lactic Coding Level of Care Code ED Tennis Professional for g Fwd Exam Comprehensive
--- NOTE | 2022-01-30 22:22 | CTR_ITS ---
PROCEDURE INFORMATION: Exam: CT Cervical Spine Without Contrast Exam date and time: 01/30/2022 11:31 PM Age: 51 years old Clinical indication: Other: Unknown injury; Patient HX: AMS, hypoxic, HX of cerebral aneurysm. PT intubated and unresponsive TECHNIQUE: Imaging protocol: Computed tomography images of the cervical spine without contrast. Radiation optimization: All CT scans at this facility use at least one of these dose optimization techniques: automated exposure control; mA and/or kV adjustment per patient size (includes targeted exams where dose is matched to clinical indication); or iterative reconstruction. COMPARISON: CT Cervical Spine wo* [id number] 10/20/2017 3:17 PM RADIATION DOSE METRICS: Total DLP (mGy-cm): 241.2 FINDINGS: Bones/joints: No acute fracture. Normal alignment. C2-C3: No significant disc protrusion. No severe spinal canal stenosis. No significant neural foraminal narrowing. C3-C4: No significant disc protrusion. No severe spinal canal stenosis. No significant neural foraminal narrowing. C4-C5: No significant disc protrusion. No severe spinal canal stenosis. No significant neural foraminal narrowing. C5-C6: No significant disc protrusion. No severe spinal canal stenosis. No significant neural foraminal narrowing. C6-C7: No significant disc protrusion. No severe spinal canal stenosis. No significant neural foraminal narrowing. C7-T1: No significant disc protrusion. No severe spinal canal stenosis. No significant neural foraminal narrowing. Lungs: Lung apices are normal. Soft tissues: Unremarkable. CT/CT cervical spin wo con* [id number] IMPRESSION: No acute findings.
[2022-01-30 22:23] LABS: HCG Qualitative Urine. Negative (Negative)
--- NOTE | 2022-01-30 22:24 | CTR_ITS ---
PROCEDURE INFORMATION: Exam: CTA Chest With Contrast Exam date and time: 01/30/2022 11:35 PM Age: 51 years old Clinical indication: Patient HX: AMS, hypoxic, HX of cerebral aneurysm. PT intubated and unresponsive; Additional info: AMS, resp failure, ? inhalation injury TECHNIQUE: Imaging protocol: Computed tomographic angiography of the chest with contrast. 3D rendering (Not supervised by radiologist): MIP and/or 3D reconstructed images were created by the technologist. Radiation optimization: All CT scans at this facility use at least one of these dose optimization techniques: automated exposure control; mA and/or kV adjustment per patient size (includes targeted exams where dose is matched to clinical indication); or iterative reconstruction. Contrast material: OMNI 300; Contrast volume: 75 ml; Contrast route: INTRAVENOUS (IV); COMPARISON: CR (CHEST, ) 01/30/2022 10:22 PM RADIATION DOSE METRICS: Total DLP (mGy-cm): 948.48 FINDINGS: Tubes, catheters and devices: Endotracheal tube in place. Enteric tube looped over the mid and distal esophagus with the tip not visualized, superior to the supraclavicular notch, beyond the CT chest [id number]. Pulmonary arteries: No pulmonary embolus or aortic dissection. Aorta: See Pulmonary arteries finding. Lungs: Mild right basilar atelectasis and/or pneumonia. Pleural spaces: Unremarkable. No pneumothorax. No pleural effusion. Heart: Unremarkable. No cardiomegaly. No pericardial effusion. Lymph nodes: Unremarkable. No enlarged lymph nodes. Bones/joints: Examination is limited by artifact from one or both arms by the patient's side. Mild thoracic spondylosis. Soft tissues: Unremarkable. PROCEDURE INFORMATION: Exam: CT Abdomen And Pelvis With Contrast Exam date and time: 01/30/2022 11:35 PM Age: 51 years old Clinical indication: Patient HX: AMS, hypoxic, HX of cerebral aneurysm. PT intubated and unresponsive; Additional info: AMS, resp failure, ? inhalation injury TECHNIQUE: Imaging protocol: Computed tomography of the abdomen and pelvis with contrast. Radiation optimization: All CT scans at this facility use at least one of these dose optimization techniques: automated exposure control; mA and/or kV adjustment per patient size (includes targeted exams where dose is matched to clinical indication); or iterative reconstruction. Contrast material: OMNI 300; Contrast volume: 75 ml; Contrast route: INTRAVENOUS (IV); COMPARISON: CR (CHEST, ) 01/30/2022 10:22 PM RADIATION DOSE METRICS: Total DLP (mGy-cm): 948.48 FINDINGS: Liver: Normal. No mass. Gallbladder and bile ducts: Normal. No calcified stones. No ductal dilation. Pancreas: Normal. No ductal dilation. Spleen: Calcified splenic granulomas. Adrenal glands: Normal. No mass. Kidneys and ureters: Normal. No hydronephrosis. Stomach and bowel: Unremarkable. No obstruction. No mucosal thickening. Appendix: No evidence of appendicitis. Intraperitoneal space: Unremarkable. No free air. No significant fluid collection. Vasculature: Unremarkable. No abdominal aortic aneurysm. Lymph nodes: Unremarkable. No enlarged lymph nodes. Urinary bladder: Kowalski balloon catheter in the urinary bladder. Air within the urinary bladder which may be secondary to Kowalski balloon catheter placement. Reproductive: Unremarkable as visualized. Bones/joints: Unremarkable. No acute fracture. Soft tissues: Unremarkable. CT/CT angio chest w abd pel w con IMPRESSION: 1. Mild right basilar atelectasis and/or pneumonia. 2. Endotracheal tube in place. 3. Enteric tube looped over the mid and distal esophagus with the tip not visualized, superior to the supraclavicular notch, beyond the CT chest roako-[id number]. 4. No pulmonary embolus or aortic dissection. IMPRESSION: Air within the urinary bladder which may be secondary to Kowalski balloon catheter placement.
[2022-01-30 22:26] VITALS: RESP 14
[2022-01-30] MEDS: sodium chloride 0.9% 1,000 ML 999 ML IV (22:28)
[2022-01-30 22:36] LABS: ABG PCO2 37.3 mmHg (35-45); ABG PH Result 7.39 (7.35-7.45); Arterial Blood Gas Hematocrit 47.7 % (37-47); Base Excess ABG -1.9 mmol/L (-2.0-2.0); Blood Gas Allen Test Pos; Blood Gas Sample Site Radial, right; Blood Gas Sample Type Arterial; HCO3 ABG 22.6 mmol/L (22-26); Oxygen Device VENT
[2022-01-30 22:37] LABS: Acetaminophen < 5.0 ug/mL (10-30); Alanine Aminotransferase 9 U/L (0-33); Alcohol Level < 10 mg/dL (0-10); Alkaline Phosphatase 80 IU/L (35-105); Anion Gap 26.8 (5-19); Aspartate Amino Transferase 17 U/L (0-32); Blood Urea Nitrogen 11 mg/dL (6-20); Calcium 9.6 mg/dL (8.5-10.5); Carbon Dioxide 14 mmol/L (22-29); Chloride 99 mmol/L (98-107); Globulin 2.4 g/dL (1.3-4.6); Glomerular Filtration Rate 88.6 mL/min (90-130); Glucose 170 mg/dL (65-115); Osmolality Calculated 285 mOsm/kg (285-295); Potassium 3.8 mmol/L (3.5-5.1); Salicylate < 0.3 mg/dL (3-10); Sodium 136 mmol/L (136-145); Thyroid Stimulating Hormone 1.64 uIU/mL (0.27-4.20); Total Bilirubin 0.5 mg/dL (0.15-1.2); Total Protein 7.4 g/dL (6.6-8.7)
[2022-01-30 22:43] LABS: Add Urine Microscopic? YES; Bilirubin Urine Neg (Negative); Blood Urine 2+ (Negative); Glucose Urine UA Norm (Normal); Ketones Urine 1+ (Negative); Leukocyte Esterase Urine Negative (Negative); Nitrate Urine Negative (Negative); Protein Urine 2+ (Negative); Urine Appearance SL Hazy (CLEAR); Urine Color Yellow (Yellow); Urobilinogen Urine Norm (Negative); pH Urine 5 (5-7)
[2022-01-30 22:47] LABS: Bacteria Urine 1+ /hpf; Squamous Epithelial Cell Urine 0-4 /hpf (0-5); WBC Urine 0-4 /hpf (0-5)
[2022-01-30 22:48] LABS: Add Urine Culture? No; Mucus Urine 2+ /hpf
[2022-01-30 22:52] LABS: Amphetamines Screen Urine Positive (Negative); Barbiturates Screen Urine Negative (Negative); Benzodiazepines Screen Urine Negative (Negative); Cocaine Screen Urine Negative (Negative); Opiate Screen Urine Negative (Negative); PCP Screen Urine Negative (Negative); THC Screen Urine Negative (Negative)
[2022-01-30] MEDS: propofol 1,000 MG/100 ML INJ 3.26 MG IV (23:01)
[2022-01-30] MEDS: iohexol 300 mg/mL 100 mL Btl IV (23:49)
--- NOTE | 2022-01-30 23:50 | PC.NURSE ---
2140- rachidnet arrived front lobby via carried per security. patient with intermittent consciousness noted. upon arriving to room 10 and placed in bed patient became agitated and combative. patient assisted and multiple attempts at descalation attempted with no improvement. Provider MU at bedside. 500 mg IM Ketamine given per VO Dr. Vigil. patient with improvement noted. patient on self defense instructor , ekg performed and shown to provider. 2210- patient with noted decreased respiratory rate and decreasing SPo2. patient placed on 5 L Nc and immediately placed on 15 Lpm NRB with no improvement. Provider at bedside. 2213 VS- 183/113, 113 HR,88% NRB@15 lpm Provider at bedside for intubation. Respiratory at bedside. 2217- 40 mg Etomidate given per provider 2218-10 vecuronium given per provider. 2219- Patient successfully intubated with color change using 8 cm tube and approx 21 cm @ teeth per Dr. Bruno. 2220 - patient placed on bedside ventilator per respiratory with no issues. Patient on self defense instructor.
[2022-01-31] VITALS (43 sets, daily range): BP systolic 110–179; BP diastolic 77–117; PULSE 76–102; RESP 13–26; TEMP 34.9–36.5; O2SAT 75–100; BMI 17.2
[2022-01-31 00:04] LABS: Lactic Sepsis W/Reflex 8.2 mmol/L (0.5-2.2)
[2022-01-31] MEDS: midazolam 1 mg/mL INJ 2 mL 2 MG IVP (00:22)
[2022-01-31] MEDS: midazolam 1 mg/mL INJ 2 mL 3 MG IVP (00:25)
[2022-01-31] MEDS: sodium chloride 0.9% 1,000 ML 999 ML IV (00:38)
--- NOTE | 2022-01-31 00:58 | XRR_ITS ---
PROCEDURE INFORMATION: Exam: XR Chest Exam date and time: 01/31/2022 1:32 AM Age: 51 years old Clinical indication: Device placement; Ng tube; Patient HX: Check S/P ng placement; Additional info: N. G tube placement confirmation TECHNIQUE: Imaging protocol: XR of the chest. Views: 1 view. COMPARISON: CR (CHEST, ) 01/30/2022 10:22 PM FINDINGS: Tubes, catheters and devices: Enteric tube tip is over the body of the stomach (mid stomach). Endotracheal tube tip over the distal trachea, 2.3 cm proximal to the pravin. Lungs: Unremarkable. No consolidation. Pleural spaces: Unremarkable. No pleural effusion. No pneumothorax. Heart/Mediastinum: Unremarkable. No cardiomegaly. Bones/joints: Unremarkable. XR/XR chest 1V portable [id number] IMPRESSION: 1. Enteric tube tip is over the body of the stomach (mid stomach). 2. Endotracheal tube tip over the distal trachea, 2.3 cm proximal to the pravin.
[2022-01-31 01:02] LABS: Reflex Lactate Order REFLEX LACTIC ORDERD
--- NOTE | 2022-01-31 01:06 | P.HP_ITS ---
Providers/Chief Complaint Admitting Physician: Selvin Álvarez MD Chief Complaint: siezure History of Present Illness Reanna Muniz is a 51 year old female with past medical history of seizure , substance abuse ,was brought in with chief complaint of not feeling well at home, generalized weakness, for the last few days, when she reached ER, she was altered, confused combative, ended up getting ketamine in the ER, post ketamine, patient started having Significant desaturation, ended up getting intubated in the ER. History has been taken by ER chart review. Pertinent imaging studies: CT head without contrast: No acute intracranial pathology CT angio chest w abd pel w con:?No pulmonary embolus or aortic dissection. Mild right basilar atelectasis and/or pneumonia. No acute intra-abdominal pathology. CT cervical spin wo con: No acute findings. Pertinent labs: WBC :8.4 , H&H 16.8/ 52 PLT : 168 , serum sodium 136 serum potassium 3.8, serum bicarbonate 14, BUN serum creatinine :11/ 0.7 , lactic acid 8.2, random blood sugar 170 AST ALT alk phos normal. TSH 1.64, ABG: pH 7.39 PCO2 :37 , PO2 528, FiO2 100% Urinalysis:;; Urine protein 2+ urine ketones 1+, urine WBC 0-4, urine nitrite negative urine leukocyte esterase negative U tox positive for amphetamine Review of Systems General: Reports: ROS unobtainable due to endotracheal tube Medications/Allergies Home Medications Medication Instructions Recorded Confirmed Last Taken Type Assured Tension Headache Relie 2 tab PO PRN 07/06/20 07/06/20 07/05/20 History 2 TABS aspirin 325 mg tablet 325 mg PO PRN 07/06/20 07/06/20 Unknown History multivitamin 1 tab PO DAILY PRN 07/06/20 07/06/20 Unknown History hydrocodone 5 mg-acetaminophen 325 1 tab PO Q6H PRN #14 tab 01/13/21 Unknown Rx mg tablet Allergies Allergy/AdvReac Type Severity Reaction Status Date / Time sumatriptan [From Imitrex] Allergy Feelings Verified 07/06/20 17:57 of Sharp needles PFSH Acute PFSH: Medical History (Updated 01/31/22 @ 01:11 by Selvin Álvarez MD) Migraine Surgical History (Updated 12/13/20 @ 01:54 by Destiny Anette Pool, ELASTIC ATTACHER CHAINSTITCH) Status post coil embolization of cerebral aneurysm Vitals/I&O/Wt Last Vital Signs Resp 14 01/30/22 22:26 01/30/22 01/30/22 01/31/22 14:59 22:59 06:59 Intake Total 1017.421 / 1017.421 Balance 1017.421 / 1017.421 Weight last 48 hrs Weight 54.431 kg Physical Exam HENMT: COMMON NORMALS: normocephalic and atraumatic HEAD & SCALP: normocephalic and atraumatic EXTERNAL EAR: Yes external ears normal Chest: CHEST: Yes Symmetrical chest wall rise Resp: COMMON NORMALS: clear to auscultation bilaterally EFFORT & INSPECTION: Yes symmetric chest movement AUSCULTATION: clear to auscultation bilaterally Cardio: COMMON NORMALS: regular rate, regular rhythm, S1 normal heart sound present, S2 normal heart sound present, No gallops present (Cardio), No murmurs present (Cardio), No rub (Cardio) and Peripheral pulses 2+ throughout RATE: regular rate RHYTHM: regular rhythm HEART SOUNDS: S1 normal heart sound present and S2 normal heart sound present PERIPHERAL PULSES: Peripheral pulses 2+ throughout GI: COMMON NORMALS: Normal to inspection, nondistended, normoactive bowel sounds present, Soft to palpation, non-tender, No hepatosplenomegaly present and no masses AUSCULTATION: Yes normoactive bowel sounds PALPATION: Yes Soft to palpation and Yes No hepatosplenomegaly present RECTAL EXAM: deferred Extremity: COMMON NORMALS: no clubbing, cyanosis or edema and no pedal edema Neuro: COMMON NORMALS: patient oriented x3 Data : 01/31/22 03:16 01/31/22 01:20 A&P Assessment and plan (1) Altered mental status: Status: Acute (2) Acidosis, lactic: Status: Acute (3) Aspiration pneumonia: Status: Acute (4) Seizure: Status: Acute Plan 51 year old female with past medical history of seizure , substance abuse ,was brought in with chief complaint of not feeling well at home, generalized weakness, for the last few days, when she reached ER, she was altered, confused combative, ended up getting ketamine in the ER, post ketamine, patient started having Significant desaturation, ended up getting intubated in the ER. Assessment: Altered mental status likely secondary to substance abuse: Lactic acidosis Aspiration pneumonia Seizure Substance abuse Plan Follow blood culture Urine culture Repeat lactic acid Procalcitonin Empirically on Zosyn for possible aspiration pneumonia. Continue IV hydration with normal saline Continue Keppra Currently on mechanical ventilation (continue Versed propofol and fentanyl for sedation) Monitor x-ray chest Monitor ABG CODE STATUS: Full code DVT prophylaxis: On Lovenox Attestations Medical Necessity Statement*: Patient is in hospital for management of altered mental status. Anticipated length of stay greater than 2 midnights. Time Spent in Patient Care: Greater than 35 minutes (>than 50% of time spent in counselling and/or direct pt care on unit) . Critical Care Time: The high probability of a clinically significant, sudden or life threatening deterioration of the patient's [] system(s) required my full and direct attention, intervention and personal management. The critical care time is as shown. This time is in addition to time spent performing any reported procedures but includes the following: [x] Data and vital sign review and interpretation [x] Patient assessment, examination and intervention [x] Documentation [x] Medication orders and management Critical Care Time (min): 30 Coding Level of Care Code Acute Systems Analyst for Chg Fwd Exam Detailed Diagnoses Altered mental status R41.82 Acidosis, lactic E87.2 Aspiration pneumonia J69.0 Seizure R56.9
[2022-01-31 01:50] LABS: Lactic Acid level (Lactate) 1.4 mmol/L (0.5-2.2)
[2022-01-31] MEDS: enoxaparin 40 mg/0.4 mL Syringe SUBCUT (01:55)
[2022-01-31] MEDS: sodium chloride 0.9% 1,000 ML 125 ML IV ×3 (01:55→16:23)
[2022-01-31] MEDS: piperacillin-tazobactam 3.375 GM in sodium chloride 0.9% (plus) 50 ML IV ×3 (01:55→16:23)
[2022-01-31 02:01] LABS: Procalcitonin 0.02 ng/mL (0-0.5); Prolactin 6.01 ng/mL (4.8-23.3)
[2022-01-31 02:12] LABS: Alanine Aminotransferase 11 U/L (0-33); Albumin Level 4.1 g/dL (3.5-5.2); Alkaline Phosphatase 69 IU/L (35-105); Aspartate Amino Transferase 18 U/L (0-32); Blood Urea Nitrogen 10 mg/dL (6-20); Carbon Dioxide 23 mmol/L (22-29); Chloride 103 mmol/L (98-107); Creatinine Clr Calc Pharmacy 91.7865; Globulin 1.8 g/dL (1.3-4.6); Glomerular Filtration Rate 105.8 mL/min (90-130); Glucose 120 mg/dL (65-115); Osmolality Calculated 280 mOsm/kg (285-295); Sodium 135 mmol/L (136-145); Total Bilirubin 0.9 mg/dL (0.15-1.2); Total Protein 5.9 g/dL (6.6-8.7)
[2022-01-31 02:21] LABS: Anion Gap 12.8 (5-19); Potassium 3.8 mmol/L (3.5-5.1)
[2022-01-31 02:22] LABS: Creatine Phosphokinase 341 U/L (26-192)
[2022-01-31 03:51] LABS: Basophils % 0.3 %; Eosinophils % 0.1 %; Hematocrit 45.9 % (37.0-47.0); Lymphocytes # 1.6 10^3/uL (0.8-4.8); Lymphocytes % 17.1 %; Mean Corpuscular HGB Conc 32.7 g/dL (30.0-36.0); Mean Corpuscular Hemoglobin 30.4 pg (28.0-34.0); Mean Corpuscular Volume 93.1 fl (81-99); Mean Platelet Volume 12.3 fL (7.4-10.4); Monocytes # 0.6 10^3/uL (0.2-0.9); Monocytes % 6.7 %; Neutrophils # 6.81 10^3/uL (1.8-7.7); Neutrophils % 75.5 %; Nucleated Red Blood Cells % 0 %; Platelet Count 144 10^3/cmm (130-400); Red Blood Count 4.93 10^6/uL (4.1-5.3)
[2022-01-31] MEDS: propofol 1,000 MG/100 ML INJ 16.32 MG IV (05:44)
[2022-01-31 06:20] LABS: ABG PCO2 42.4 mmHg (35-45); ABG PH Result 7.38 (7.35-7.45); Arterial Blood Gas Hematocrit 44.8 % (37-47); Base Excess ABG -0.2 mmol/L (-2.0-2.0); Blood Gas Allen Test Pos; Blood Gas Sample Site Radial, right; Blood Gas Sample Type Arterial; HCO3 ABG 25.1 mmol/L (22-26); Oxygen Device VENT; PO2 ABG 74.8 mmHg (80.0-100.0)
--- NOTE | 2022-01-31 09:33 | PC.PHAR ---
pt is intubated-called pts that we had in contacts [facility] [phone] number not a working number-no meds pull up on ext med history
--- NOTE | 2022-01-31 10:10 | PC.CHAP ---
Pastoral Care Encounter/Spiritual Assessment Type of Contact [] Declined caretaker visit [] Patient/Family/Request visit [] Outpatient visit [] Follow-up visit [] Physician referral [] Code/Alert [x] Routine visit [] Staff referral [] Actively dying [] Patient sleeping [] Family support [] [] Out of room [] Palliative care [] [] Receiving care in room [] Pre-surgical visit [] Trauma [] Long length of stay [x] ICU visit [x] Other: vent Relational/Emotional Strength [] Patient feels connected with others/family/visitors/staff [] Distress [] Loneliness/isolation [] Abandonment Spirituality of Patient [] Person of Darlene [] Attends Yazidi of their Darlene [] Believes in Prayer [] Reads Bible or Zoroastrianism materials [] There are Spiritual issues to be addressed Injection Molding Engineer Interventions [x] Prayer [] Active listening [] Non-anxious presence [] Spiritual/emotional support [] Crisis/trauma care [] Spiritual counseling [] Bereavement support [] Provided bereavement packet [] Provided Bible/devotional materials [] Provided toy/stuffed animal, coloring book to patient or family member [] Provided Communion [] Anointing/Adell [] Salvation [x] Completed spiritual assessment [] Other: Impact on Illness or Injury [] Angry [] Fearful [] Anxious [] Often cries [] Exhaustion [] Unable to work [] Unable to attend caodaism [] Unable to walk/stand [] Unable to read [] Unable to drive [] Unable to eat/drink [] Unable to sleep [] Unable to be with family [] Patient intubated [] Other: Summary Time spent with patient
[2022-01-31 10:26] LABS: Procalcitonin 0.03 ng/mL (0-0.5); Thyroid Stimulating Hormone 1.13 uIU/mL (0.27-4.20)
[2022-01-31 10:38] LABS: Albumin Level 3.5 g/dL (3.5-5.2); Alkaline Phosphatase 56 IU/L (35-105); Blood Urea Nitrogen 7 mg/dL (6-20); Calcium 7.5 mg/dL (8.5-10.5); Carbon Dioxide 20 mmol/L (22-29); Chloride 105 mmol/L (98-107); Globulin 1.6 g/dL (1.3-4.6); Glomerular Filtration Rate 130.6 mL/min (90-130); Glucose 77 mg/dL (65-115); Osmolality Calculated 281 mOsm/kg (285-295); Sodium 137 mmol/L (136-145); Total Bilirubin 0.5 mg/dL (0.15-1.2); Total Protein 5.1 g/dL (6.6-8.7)
[2022-01-31 10:47] LABS: Anion Gap 16.1 (5-19); Potassium 4.1 mmol/L (3.5-5.1)
[2022-01-31 10:48] LABS: Alanine Aminotransferase 9 U/L (0-33); Aspartate Amino Transferase 20 U/L (0-32); Creatine Phosphokinase 345 U/L (26-192)
[2022-01-31 12:06] LABS: Basophils % 0.4 %; Eosinophils # 0.1 10^3/uL (0.0-0.8); Eosinophils % 1.4 %; Hematocrit 45.1 % (37.0-47.0); Hemoglobin 14.6 g/dL (11.5-15.3); Lymphocytes % 25.9 %; Mean Corpuscular HGB Conc 32.4 g/dL (30.0-36.0); Mean Corpuscular Hemoglobin 30.5 pg (28.0-34.0); Mean Corpuscular Volume 94.4 fl (81-99); Mean Platelet Volume 12.2 fL (7.4-10.4); Monocytes # 0.7 10^3/uL (0.2-0.9); Monocytes % 9.1 %; Neutrophils # 4.98 10^3/uL (1.8-7.7); Neutrophils % 63.1 %; Nucleated Red Blood Cells % 0 %; Platelet Count 131 10^3/cmm (130-400); Red Blood Count 4.78 10^6/uL (4.1-5.3); Red Cell Distribution Width 14.2 % (12.1-15.1); White Blood Count 7.9 10^3/uL (4.0-10.0)
--- NOTE | 2022-01-31 12:28 | PM.MISC ---
Miscellaneous Note Note: Seen this morning. Goal to wean off sedation and do a weaning trial. Discussed with RN. We will repeat labs today. Lactic acid normalized. Sputum culture, drug screen, blood culture, urine culture pending. Will check CPK. Management as H&P.
--- NOTE | 2022-01-31 12:42 | P.MISC_ITS ---
Miscellaneous Note Purpose of Documentation: Contacted family Note: I discussed with her over the phone. He states that he witnessed a seizure that the patient had prior to arrival. He stated after the seizure she was not very arousable and therefore he brought her to the hospital. He says he had to carry her in. He says they have been together for 16 years and as far as he is aware she is only had 1 seizure before in the past which was a long time ago. Past medical history is aware of is coiling of a cerebral aneurysm. He states he was at [facility] but otherwise he does not know any other medical problems. She does not follow with any doctors and does not have a primary care doctor either. ? He states that she does abuse fentanyl very frequently and has a suspicion that it was probably laced with methamphetamine and that is why meth is positive in the urine. He states she used to use meth in the past but not anymore. Now she only abuses fentanyl. He states at some point he will be coming in today to visit her. He also reports a cough that the patient has been having for the last few months.
--- NOTE | 2022-01-31 15:14 | PC.NURSE ---
Patient extubated per RT, patient AO to self and being in hospital, follows commands
--- NOTE | 2022-01-31 15:19 | PC.NURSE ---
Wasted 18.5 ml of fentanyl and 26.91 of versed
[2022-01-31] MEDS: morphine 4 mg/mL SDV 1 mL 1 MG IVP (17:48)
--- NOTE | 2022-01-31 18:44 | PC.NURSE ---
patient c/o of back pain, unable to rate, Dr. Steinberg ordered 1 mg Morphine x1 dose now for pain, patient asked for socks, socks were taken to patient, patient unhappy with bed and cussing at this nurse, this nurse explained this nurse needed to handle another situation and would be back, patient began yelling, charge nurse went into room as this nurse stepped out
--- NOTE | 2022-01-31 18:48 | PC.NURSE ---
this nurse was informed by charge nurse patient chose to eave AMA, HCP notified by night charge nurse
--- NOTE | 2022-01-31 18:59 | PC.NURSE ---
Patient continue to cuss at staff, not cooperative, at bedside, staff unable to accommodate patient to her liking, patient left AMA approximately 1850 after signing AMA form, Dr. Steinberg came to unit to see patient just after patient left
--- NOTE | 2022-01-31 19:04 | PC.NURSE ---
Foly and Ivs removed prior to patient leaving
--- NOTE | 2022-01-31 22:10 | PM.DCS ---
Discharge Providers Date of Admission: 01/31/22 02:32 Date of Discharge: February 01, 2022 Attending Provider at Admission: Selvin Álvarez MD Attending Provider at Discharge: Niki Steinberg MD Diagnoses at Discharge Discharge Diagnosis (1) Altered mental status: Status: Acute (2) Acidosis, lactic: Status: Acute (3) Aspiration pneumonia: Status: Acute (4) Seizure: Status: Acute Reason for Visit Reason for Visit: siezure Brief History: LEFT AMA Hospital Course Hospital Course WENT TO ICU TO SEE PT, STAFF INFORMED ME SHE LEFT AMA A WHILE AGO Discharge Data Studies Completed and Pending Completed Studies During Hospitalization Category Date Time Status CT cervical spin wo con* [id number] Stat Cat Scan 01/30/22 22:[address] head wo con* [id number] Stat Cat Scan 01/30/22 22:[address] abdomen pelvis [CT angio chest w abd pel w Cat Scan 01/30/22 22:24 Completed con] Stat XR chest 1V portable [id number] Routine Exams 01/31/22 00:58 Completed XR chest 1V portable [id number] Urgent Exams 01/30/22 22:00 Completed Pending at discharge Category Date Time Status Blood Culture Stat Lab 01/30/22 22:40 Results Sputum Culture and Gram Stain Stat Lab 01/31/22 13:20 Results Radiology Impressions Head CT 01/30/22 22:00 IMPRESSION: Negative for intracranial hemorrhage or mass. Cervical Spine CT 01/30/22 22:22 IMPRESSION: No acute findings. Chest/Abdomen/Pelvis CT 01/30/22 22:24 IMPRESSION: 1. Mild right basilar atelectasis and/or pneumonia. 2. Endotracheal tube in place. 3. Enteric tube looped over the mid and distal esophagus with the tip not visualized, superior to the supraclavicular notch, beyond the CT chest [id number]. 4. No pulmonary embolus or aortic dissection. IMPRESSION: Air within the urinary bladder which may be secondary to Kowalski balloon catheter placement. Chest X-Ray 01/31/22 00:58 IMPRESSION: 1. Enteric tube tip is over the body of the stomach (mid stomach). 2. Endotracheal tube tip over the distal trachea, 2.3 cm proximal to the pravin. Laboratory Results WBC 7.9 10^3/uL (4.0-10.0) 01/31/22 11:55 Corrected WBC Cancelled 01/31/22 09:49 RBC 4.78 10^6/uL (4.1-5.3) 01/31/22 11:55 Hgb 14.6 g/dL (11.5-15.3) 01/31/22 11:55 Hct 45.1 % (37.0-47.0) 01/31/22 11:55 MCV 94.4 fl (81-99) 01/31/22 11:55 MCH 30.5 pg (28.0-34.0) 01/31/22 11:55 MCHC 32.4 g/dL (30.0-36.0) 01/31/22 11:55 RDW 14.2 % (12.1-15.1) 01/31/22 11:55 Plt Count 131 10^3/cmm (130-400) 01/31/22 11:55 MPV 12.2 fL (7.4-10.4) H 01/31/22 11:55 Gran % Cancelled 01/31/22 09:49 Neut % (Auto) 63.1 % 01/31/22 11:55 Lymph % (Auto) 25.9 % 01/31/22 11:55 [place] % (Auto) 9.1 % 01/31/22 11:55 Eos % (Auto) 1.4 % 01/31/22 11:55 Baso % (Auto) 0.4 % 01/31/22 11:55 Neut # (Auto) 4.98 10^3/uL (1.8-7.7) 01/31/22 11:55 Lymph # (Auto) 2.0 10^3/uL (0.8-4.8) 01/31/22 11:55 [place] # (Auto) 0.7 10^3/uL (0.2-0.9) 01/31/22 11:55 Eos # (Auto) 0.1 10^3/uL (0.0-0.8) 01/31/22 11:55 Baso # (Auto) 0.0 10^3/uL (0.0-0.1) 01/31/22 11:55 Absolute Gran (auto) Cancelled 01/31/22 09:49 Nucleated RBC % (auto) 0 % 01/31/22 11:55 Nucleated RBCs # 0.0 /100WBC 01/31/22 11:55 Specimen Type Arterial 01/31/22 05:59 Sample Site Radial, right 01/31/22 05:59 ABG pH 7.38 (7.35-7.45) 01/31/22 05:59 ABG pCO2 42.4 mmHg (35-45) 01/31/22 05:59 ABG pO2 74.8 mmHg (80.0-100.0) L 01/31/22 05:59 ABG HCO3 25.1 mmol/L (22-26) 01/31/22 05:59 ABG Base Excess -0.2 mmol/L (-2.0-2.0) 01/31/22 05:59 Saqib Test Pos 01/31/22 05:59 Hematocrit 44.8 % (37-47) 01/31/22 05:59 O2 Delivery Device Vent 01/31/22 05:59 FiO2 40.0 % 01/31/22 05:59 Tidal Volume 0.40 01/31/22 05:59 PEEP 5.0 cmH20 01/31/22 05:59 Toddler Teacher ID [email or web address] 01/31/22 05:59 Sodium 137 mmol/L (136-145) 01/31/22 09:49 Potassium 4.1 mmol/L (3.5-5.1) 01/31/22 09:49 Chloride 105 mmol/L (98-107) 01/31/22 09:49 Carbon Dioxide 20 mmol/L (22-29) L 01/31/22 09:49 Anion Gap 16.1 (5-19) 01/31/22 09:49 BUN 7 mg/dL (6-20) 01/31/22 09:49 Creatinine 0.5 mg/dL (0.5-0.9) 01/31/22 09:49 GFR Calculation 130.6 mL/min (90-130) H 01/31/22 09:49 Glucose 77 mg/dL (65-115) 01/31/22 09:49 Calculated Osmolality 281 mOsm/kg (285-295) L 01/31/22 09:49 Lactic Acid 1.0 mmol/L (0.5-2.2) 01/31/22 09:49 Lactic Acid (Sepsis) 1.4 mmol/L (0.5-2.2) 01/31/22 01:20 Calcium 7.5 mg/dL (8.5-10.5) L 01/31/22 09:49 Total Bilirubin 0.5 mg/dL (0.15-1.2) 01/31/22 09:49 AST 20 U/L (0-32) 01/31/22 09:49 ALT 9 U/L (0-33) 01/31/22 09:49 Alkaline Phosphatase 56 IU/L (35-105) 01/31/22 09:49 Creatine Kinase 345 U/L (26-192) H* 01/31/22 09:49 Total Protein 5.1 g/dL (6.6-8.7) L 01/31/22 09:49 Albumin 3.5 g/dL (3.5-5.2) 01/31/22 09:49 Globulin 1.6 g/dL (1.3-4.6) 01/31/22 09:49 Procalcitonin 0.03 ng/mL (0-0.5) 01/31/22 09:49 TSH 1.13 uIU/mL (0.27-4.20) 01/31/22 09:49 Prolactin 6.01 ng/mL (4.8-23.3) 01/31/22 01:20 HCG, Qual Negative (Negative) 01/30/22 22:14 Urine Color Yellow (Yellow) 01/30/22 22:14 Urine Appearance Sl hazy (CLEAR) 01/30/22 22:14 Urine pH 5 (5-7) 01/30/22 22:14 Ur Specific [place] 1.030 (1.005-1.030) 01/30/22 22:14 Urine Protein 2+ (Negative) H 01/30/22 22:14 Urine Glucose (UA) Norm (Normal) 01/30/22 22:14 Urine Ketones 1+ (Negative) H 01/30/22 22:14 Urine Blood 2+ (Negative) H 01/30/22 22:14 Urine Nitrate Negative (Negative) 01/30/22 22:14 Urine Bilirubin Neg (Negative) 01/30/22 22:14 Urine Urobilinogen Norm mg/dL (Negative) 01/30/22 22:14 Ur Leukocyte Esterase Negative (Negative) 01/30/22 22:14 Urine RBC 5-10 /hpf (0-2) H 01/30/22 22:14 Urine WBC 0-4 /hpf (0-5) H 01/30/22 22:14 Ur Squamous Epith Cells 0-4 /hpf (0-5) H 01/30/22 22:14 Amorphous Sediment Not Reportable 01/30/22 22:14 Urine Bacteria 1+ /hpf (NONE) H 01/30/22 22:14 Urine Mucus 2+ /hpf 01/30/22 22:14 Salicylates < 0.3 mg/dL (3-10) L 01/30/22 22:02 Urine Opiates Screen Negative ng/mL (Negative) 01/30/22 22:14 Acetaminophen < 5.0 ug/mL (10-30) L 01/30/22 22:02 Ur Barbiturates Screen Negative ng/mL (Negative) 01/30/22 22:14 Ur Phencyclidine Scrn Negative ng/mL (Negative) 01/30/22 22:14 Ur Amphetamines Screen Positive ng/mL (Negative) H 01/30/22 22:14 U Benzodiazepines Scrn Negative ng/mL (Negative) 01/30/22 22:14 Urine Cocaine Screen Negative ng/mL (Negative) 01/30/22 22:14 U Marijuana (THC) Screen Negative ng/mL (Negative) 01/30/22 22:14 Ethyl Alcohol < 10 mg/dL (0-10) 01/30/22 22:02 Vitals Last Vital Signs Temp 96.9 F L 01/31/22 05:30 Pulse 87 01/31/22 16:00 Resp 13 01/31/22 17:48 BP 128/85 01/31/22 16:00 Pulse Ox 92 01/31/22 17:48 Discharge Plan Discharge Patient Disposition: Left Against Medical Advice Prescriptions: No Action Unable to Assess 0RF Discharge Attestations Time Spent in Discharge Care*: other Quality Metrics Clinical Quality Measures [ No reported AMI, CVA or VTE this stay] Coding Level of Care Code Acute Chg FW DC note Diagnoses Altered mental status R41.82 Acidosis, lactic E87.2 Aspiration pneumonia J69.0 Seizure R56.9
== END 2022-01-31 19:04 | disposition left against medical advice (07) | DRG 208 ==
LOC: ER 01-31 00:51 → ICU 01-31 01:04
PROVIDERS: Admitting Provider Internal Medicine; Emergency Provider Emergency Medicine; Visit Provider Internal Medicine
DX: J96.01 Acute respiratory failure with hypoxia (principal); J69.0 Pneumonitis due to inhalation of food and vomit; E87.2 Acidosis; R41.82 Altered mental status, unspecified; R56.9 Unspecified convulsions; F15.10 Other stimulant abuse, uncomplicated; F13.10 Sedative, hypnotic or anxiolytic abuse, uncomplicated; Z53.29 Procedure and treatment not carried out because of patient's decision for other reasons
CPT/HCPCS: 36415; 36600; 70450; 71045; 71275; 72125; 74177; 80053; 80306; 80307; 81001; 81025; 82550; 82803; 83605; 84145; 84146; 84443; 85025; 87040; 87070; 87205; 93005; 94002; 94003; 94799; 96365; 96366; 96367; 96372; 99291; 99292; J1650; J1953; J2250; J2270; J2543; J2704; J3010; J3490; J7030; Q9967

== ENCOUNTER 2022-07-18 08:39 | Emergency (ER) | payer SELFPAY ==
[2022-07-18 08:43] VITALS: BP 87/54; PULSE 123; RESP 16; TEMP 36.8; O2SAT 93; BMI 16.8
--- NOTE | 2022-07-18 09:00 | XRR_ITS ---
PROCEDURE INFORMATION: Exam: XR Chest Exam date and time: 07/18/2022 10:16 AM Age: 52 years old Clinical indication: Other: Hypoxia; Patient HX: Patient wasnt able to answer questions, recieved norcane and kept yellign her skin was burning TECHNIQUE: Imaging protocol: Radiologic exam of the chest. Views: 1 view. COMPARISON: CR (CHEST, ) 01/31/2022 1:32 AM FINDINGS: Lungs: Bilateral nipple shadows noted. Hyperinflation of the lungs. Emphysematous changes. No significant airspace consolidation concerning for pneumonia. Pleural spaces: No pneumothorax. No pleural effusion. Heart/Mediastinum: The cardiomediastinal silhouette is within normal limits. Bones/joints: Unremarkable. XR/XR chest 1V portable [id number] IMPRESSION: No acute cardiopulmonary abnormality identified.
--- NOTE | 2022-07-18 09:02 | W.ED.SEIZURE ---
Documented by User: KENNY Yarbrough 07/18/22 09:59 HPI - Seizure General: Chief Complaint: Seizure Stated Complaint: seizure Time Seen by Provider: 07/18/22 08:48 History of Present Illness: HPI Narrative: Patient is a 52-year-old female comes to the ED for possible seizure. Patient admits to using fentanyl. Here here in the ED she is very lethargic and keeps falling asleep. we have to ask her questions multiple times and then she will respond. She does not have a history of seizures and is not on any current medications to treat her seizures. Patient's said that he was told by one of their siblings to come check on mom. He states that she was laying on the ground with her eyes closed and her arms were flexed up into her body. She was not shaking or convulsing at all. She was not responding either. After few minutes she came to was responding but was still very sleepy and lethargic. admits that the patient has a problem with fentanyl use. Associated symptoms: Deny chest pain, chills or fever(s) Review of Systems Narrative: Illicit drug use??fentanyl Const: Reports: other (Sleepy and lethargic); Denies: fever(s), chills or fatigue Eyes: Denies: change in vision or eye discomfort ENMT: Denies: throat pain, odynophagia, nasal discharge or nasal congestion Card: Denies: chest pain, palpitations, edema, swelling of feet/ankles, dyspnea on exertion or orthopnea Resp: Denies: dyspnea, productive cough or non-productive cough GI: Denies: abdominal pain, nausea, vomiting, diarrhea, constipation or hematochezia : Denies: flank pain, dysuria or hematuria Musc: Denies: neck pain, back pain or extremity swelling Skin/Breast: Denies: rash or new lesions Neuro: Reports: seizure-like activity; Denies: headache(s), numbness in extremities or weakness in extremities PFS ED PFSH: Medical History Migraine Surgical History Status post coil embolization of cerebral aneurysm Physical Exam Const: COMMON NORMALS: patient oriented x3 GENERAL APPEARANCE: lethargic ORIENTATION/CONSCIOUSNESS: Yes lethargic OTHER: Patient was very sleepy and lethargic. Her O2 saturation levels were dropping into the 80s. O2 saturation went up into the 95% after 3 L O2 via NC. HENMT: COMMON NORMALS: normocephalic HEAD & SCALP: normocephalic MOUTH: Normal oral and palatal mucosa present THROAT: posterior oropharynx normal and uvula midline Neck/C-Spine: COMMON NORMALS: supple GENERAL: Yes normal visual inspection Resp: COMMON NORMALS: normal respiratory effort, No retractions, No use of accessory muscles and clear to auscultation bilaterally AUSCULTATION: clear to auscultation bilaterally Cardio: COMMON NORMALS: regular rate, regular rhythm, S1 normal heart sound present, S2 normal heart sound present, No gallops present (Cardio), No clicks present (Cardio), No murmurs present (Cardio) and Peripheral pulses 2+ throughout RATE: regular rate RHYTHM: regular rhythm HEART SOUNDS: S1 normal heart sound present and S2 normal heart sound present PERIPHERAL PULSES: Peripheral pulses 2+ throughout GI: COMMON NORMALS: Normal to inspection, nondistended, normoactive bowel sounds present, Soft to palpation, non-tender and no masses PALPATION: Yes Soft to palpation : COMMON NORMALS: Yes no CVA tenderness BLADDER/KIDNEY EXAM: Yes no CVA tenderness Back/Pelvis: COMMON NORMALS: no CVA tenderness Extremity: COMMON NORMALS: normal to inspection Neuro: COMMON NORMALS: patient oriented x3 SENSORIUM/ORIENTATION: Yes lethargic GAIT: Yes Normal gait present Skin: GENERAL SKIN EXAM: dry skin Course ED course: Patient was very sleepy and lethargic. Her O2 saturation levels were dropping into the 80s. O2 saturation went up into the 95% after 3 L O2 via NC. Given her history of fentanyl abuse and she admitted that she took some fentanyl this morning, she was given 1 mg of Narcan and patient became more alert and responsive. Reevaluation(s): Reevaluation #1: After patient has received Narcan she states that she feels a lot better. She is alert and interactive and responsive though my questions. Vitals are stable her O2 saturation is 96% on room air. Time: 09:45 Vital Signs: Vital signs: Vital Signs Temperature 98.3 F 07/18/22 08:43 Pulse Rate 101 H 07/18/22 09:54 Respiratory Rate 14 07/18/22 09:54 Blood Pressure 117/91 07/18/22 09:33 Pulse Oximetry 98 07/18/22 09:54 Oxygen Delivery Me thod 07/18/22 09:33 MDM - Seizure MDM Narrative Medical decision making narrative: Patient is a 52-year-old female who comes to the ED for possible seizure. She has a history of fentanyl abuse and took fentanyl this morning. Due to her presentation and history of fentanyl abuse I think this is likely an overdose of fentanyl versus a seizure. Her O2 saturation levels were dipping into the 80s so she was put on 3 L of O2 via nasal cannula. She was then given a dose of Narcan and her symptoms improved and she is feeling a lot better. She is more alert awake and responsive. Her vitals are stable and her O2 saturation is 96% on room air. She is stable for discharge home and diagnosed with illicit drug overdose. She was given information on opioid and narcotic abuse. Told to follow-up with her PCP within the next week for reevaluation. Return to ED precautions given. Patient understood and agreed with plan. Lab Data 07/18/22 09:18 07/18/22 09:18 Labs: Radiology Impressions Chest X-Ray 07/18/22 09:00 IMPRESSION: No acute cardiopulmonary abnormality identified. Laboratory Results WBC 5.9 10^3/uL (4.0-10.0) 07/18/22 09:18 RBC 5.38 10^6/uL (4.1-5.3) H 07/18/22 09:18 Hgb 16.5 g/dL (11.5-15.3) H 07/18/22 09:18 Hct 50.9 % (37.0-47.0) H 07/18/22 09:18 MCV 94.6 fl (81-99) 07/18/22 09:18 MCH 30.7 pg (28.0-34.0) 07/18/22 09:18 MCHC 32.4 g/dL (30.0-36.0) 07/18/22 09:18 RDW 13.9 % (12.1-15.1) 07/18/22 09:18 Plt Count 174 10^3/cmm (130-400) 07/18/22 09:18 MPV 12.0 fL (7.4-10.4) H 07/18/22 09:18 Neut % (Auto) 48.0 % 07/18/22 09:18 Lymph % (Auto) 41.4 % 07/18/22 09:18 [place] % (Auto) 6.7 % 07/18/22 09:18 Eos % (Auto) 2.9 % 07/18/22 09:18 Baso % (Auto) 0.7 % 07/18/22 09:18 Neut # (Auto) 2.81 10^3/uL (1.8-7.7) 07/18/22 09:18 Lymph # (Auto) 2.4 10^3/uL (0.8-4.8) 07/18/22 09:18 [place] # (Auto) 0.4 10^3/uL (0.2-0.9) 07/18/22 09:18 Eos # (Auto) 0.2 10^3/uL (0.0-0.8) 07/18/22 09:18 Baso # (Auto) 0.0 10^3/uL (0.0-0.1) 07/18/22 09:18 Nucleated RBC % (auto) 0 % 07/18/22 09:18 Nucleated RBCs # 0.0 /100WBC 07/18/22 09:18 Sodium 140 mmol/L (136-145) 07/18/22 09:18 Potassium 4.3 mmol/L (3.5-5.1) 07/18/22 09:18 Chloride 104 mmol/L (98-107) 07/18/22 09:18 Carbon Dioxide 27 mmol/L (22-29) 07/18/22 09:18 Anion Gap 13.3 (5-19) 07/18/22 09:18 BUN 16 mg/dL (6-20) 07/18/22 09:18 Creatinine 0.8 mg/dL (0.5-0.9) 07/18/22 09:18 GFR Calculation 75.6 mL/min (90-130) L 07/18/22 09:18 Glucose 68 mg/dL (65-115) 07/18/22 09:18 Calculated Osmolality 289 mOsm/kg (285-295) 07/18/22 09:18 Calcium 9.1 mg/dL (8.5-10.5) 07/18/22 09:18 Total Bilirubin 0.3 mg/dL (0.15-1.2) 07/18/22 09:18 AST 14 U/L (0-32) 07/18/22 09:18 ALT 9 U/L (0-33) 07/18/22 09:18 Alkaline Phosphatase 82 U/L (35-105) 07/18/22 09:18 Total Protein 6.9 g/dL (6.6-8.7) 07/18/22 09:18 Albumin 4.4 g/dL (3.5-5.2) 07/18/22 09:18 Globulin 2.5 g/dL (1.3-4.6) 07/18/22 09:18 Discharge Plan Discharge Patient Disposition: Home Clinical Impression: Overdose of illicit drug Condition: Stable Prescriptions: No Action Womens Daily Gummies 200 mcg Tablet,Chewable 1 tab PO DAILY Discharge Orders: Discharge ED (Routine); Ordered 07/18/22 Ordered By: Lex Del Toro Discharge Diet: Regular Discharge Activity: Increase activity as tolerated Patient Instructions: Narcotic Use Disorder (ED), Opioid Use Disorder (ED) Activity Restrictions/Additional Instructions: Follow-up with medical provider as directed in the next 5-7 days for reavaluation. Return to the ER or your medical provider if condition worsens. Please read and understand discharge instructions. Thank you for choosing [facility] for your healthcare needs today. Please realize this is an emergency room and that we are providing you with a medical screening exam and this may not be complete and all inclusive of all the testing and or work up that you may need to determine your ailment or severity of your illness. It is very important that you follow up as instructed or that you return to the Emergency Department should you have concerns or if your condition changes or worsens in any way. Coding Level of Care Code ED Deployment Technician for Chg Fwd Exam Comprehensive Documented by User: Rolando Oneill DO 07/18/22 14:30 HPI - Seizure General: Chief Complaint: Seizure Stated Complaint: seizure Time Seen by Provider: 07/18/22 08:48 [facility] ED PFSH: Medical History Migraine Surgical History Status post coil embolization of cerebral aneurysm Course Vital Signs: Vital signs: Vital Signs Temperature 98.3 F 07/18/22 08:43 Pulse Rate 101 H 07/18/22 09:54 Respiratory Rate 14 07/18/22 09:54 Blood Pressure 117/91 07/18/22 09:33 Pulse Oximetry 98 07/18/22 09:54 Oxygen Delivery Me thod 07/18/22 09:33 MDM - Seizure MDM Narrative Medical decision making narrative: Patient is a 52-year-old female who comes to the ED for possible seizure. She has a history of fentanyl abuse and took fentanyl this morning. Due to her presentation and history of fentanyl abuse I think this is likely an overdose of fentanyl versus a seizure. Her O2 saturation levels were dipping into the 80s so she was put on 3 L of O2 via nasal cannula. She was then given a dose of Narcan and her symptoms improved and she is feeling a lot better. She is more alert awake and responsive. Her vitals are stable and her O2 saturation is 96% on room air. She is stable for discharge home and diagnosed with illicit drug overdose. She was given information on opioid and narcotic abuse. Told to follow-up with her PCP within the next week for reevaluation. Return to ED precautions given. Patient understood and agreed with plan. Chart reviewed and patient discussed with midlevel. Agree with assessment and plan. Lab Data 07/18/22 09:18 07/18/22 09:18 Labs: Radiology Impressions Chest X-Ray 07/18/22 09:00 IMPRESSION: No acute cardiopulmonary abnormality identified. Laboratory Results WBC 5.9 10^3/uL (4.0-10.0) 07/18/22 09:18 RBC 5.38 10^6/uL (4.1-5.3) H 07/18/22 09:18 Hgb 16.5 g/dL (11.5-15.3) H 07/18/22 09:18 Hct 50.9 % (37.0-47.0) H 07/18/22 09:18 MCV 94.6 fl (81-99) 07/18/22 09:18 MCH 30.7 pg (28.0-34.0) 07/18/22 09:18 MCHC 32.4 g/dL (30.0-36.0) 07/18/22 09:18 RDW 13.9 % (12.1-15.1) 07/18/22 09:18 Plt Count 174 10^3/cmm (130-400) 07/18/22 09:18 MPV 12.0 fL (7.4-10.4) H 07/18/22 09:18 Neut % (Auto) 48.0 % 07/18/22 09:18 Lymph % (Auto) 41.4 % 07/18/22 09:18 [place] % (Auto) 6.7 % 07/18/22 09:18 Eos % (Auto) 2.9 % 07/18/22 09:18 Baso % (Auto) 0.7 % 07/18/22 09:18 Neut # (Auto) 2.81 10^3/uL (1.8-7.7) 07/18/22 09:18 Lymph # (Auto) 2.4 10^3/uL (0.8-4.8) 07/18/22 09:18 [place] # (Auto) 0.4 10^3/uL (0.2-0.9) 07/18/22 09:18 Eos # (Auto) 0.2 10^3/uL (0.0-0.8) 07/18/22 09:18 Baso # (Auto) 0.0 10^3/uL (0.0-0.1) 07/18/22 09:18 Nucleated RBC % (auto) 0 % 07/18/22 09:18 Nucleated RBCs # 0.0 /100WBC 07/18/22 09:18 Sodium 140 mmol/L (136-145) 07/18/22 09:18 Potassium 4.3 mmol/L (3.5-5.1) 07/18/22 09:18 Chloride 104 mmol/L (98-107) 07/18/22 09:18 Carbon Dioxide 27 mmol/L (22-29) 07/18/22 09:18 Anion Gap 13.3 (5-19) 07/18/22 09:18 BUN 16 mg/dL (6-20) 07/18/22 09:18 Creatinine 0.8 mg/dL (0.5-0.9) 07/18/22 09:18 GFR Calculation 75.6 mL/min (90-130) L 07/18/22 09:18 Glucose 68 mg/dL (65-115) 07/18/22 09:18 Calculated Osmolality 289 mOsm/kg (285-295) 07/18/22 09:18 Calcium 9.1 mg/dL (8.5-10.5) 07/18/22 09:18 Total Bilirubin 0.3 mg/dL (0.15-1.2) 07/18/22 09:18 AST 14 U/L (0-32) 07/18/22 09:18 ALT 9 U/L (0-33) 07/18/22 09:18 Alkaline Phosphatase 82 U/L (35-105) 07/18/22 09:18 Total Protein 6.9 g/dL (6.6-8.7) 07/18/22 09:18 Albumin 4.4 g/dL (3.5-5.2) 07/18/22 09:18 Globulin 2.5 g/dL (1.3-4.6) 07/18/22 09:18 Discharge Plan Discharge Patient Disposition: Home Clinical Impression: Overdose of illicit drug Condition: Stable Prescriptions: No Action Womens Daily Gummies 200 mcg Tablet,Chewable 1 tab PO DAILY Discharge Orders: Discharge ED (Routine); Ordered 07/18/22 Ordered By: Lex Del Toro Discharge Diet: Regular Discharge Activity: Increase activity as tolerated Patient Instructions: Narcotic Use Disorder (ED), Opioid Use Disorder (ED) Activity Restrictions/Additional Instructions: Follow-up with medical provider as directed in the next 5-7 days for reavaluation. Return to the ER or your medical provider if condition worsens. Please read and understand discharge instructions. Thank you for choosing [facility] for your healthcare needs today. Please realize this is an emergency room and that we are providing you with a medical screening exam and this may not be complete and all inclusive of all the testing and or work up that you may need to determine your ailment or severity of your illness. It is very important that you follow up as instructed or that you return to the Emergency Department should you have concerns or if your condition changes or worsens in any way. Coding Level of Care Code ED Deployment Technician for Kemi Padilla Exam Comprehensive
--- NOTE | 2022-07-18 09:26 | PC.PHAR ---
PTS VISITOR STS PT DOES NOT TAKE ANY PRESCRIPTIONS ONLY A WOMEN MULTI GUMMIE VITAMIN- CALLED PTS PHARMACY TO CONFIRM
[2022-07-18 09:27] LABS: Basophils % 0.7 %; Eosinophils # 0.2 10^3/uL (0.0-0.8); Eosinophils % 2.9 %; Hematocrit 50.9 % (37.0-47.0); Hemoglobin 16.5 g/dL (11.5-15.3); Lymphocytes # 2.4 10^3/uL (0.8-4.8); Lymphocytes % 41.4 %; Mean Corpuscular HGB Conc 32.4 g/dL (30.0-36.0); Mean Corpuscular Hemoglobin 30.7 pg (28.0-34.0); Mean Corpuscular Volume 94.6 fl (81-99); Monocytes # 0.4 10^3/uL (0.2-0.9); Monocytes % 6.7 %; Neutrophils # 2.81 10^3/uL (1.8-7.7); Nucleated Red Blood Cells % 0 %; Platelet Count 174 10^3/cmm (130-400); Red Blood Count 5.38 10^6/uL (4.1-5.3); Red Cell Distribution Width 13.9 % (12.1-15.1); White Blood Count 5.9 10^3/uL (4.0-10.0)
[2022-07-18 09:33] VITALS: BP 117/91; PULSE 96; RESP 14; O2SAT 96
[2022-07-18 09:54] VITALS: PULSE 101; RESP 14; O2SAT 98
[2022-07-18 09:59] LABS: Alanine Aminotransferase 9 U/L (0-33); Albumin Level 4.4 g/dL (3.5-5.2); Alkaline Phosphatase 82 U/L (35-105); Anion Gap 13.3 (5-19); Aspartate Amino Transferase 14 U/L (0-32); Blood Urea Nitrogen 16 mg/dL (6-20); Calcium 9.1 mg/dL (8.5-10.5); Carbon Dioxide 27 mmol/L (22-29); Chloride 104 mmol/L (98-107); Globulin 2.5 g/dL (1.3-4.6); Glomerular Filtration Rate 75.6 mL/min (90-130); Glucose 68 mg/dL (65-115); Osmolality Calculated 289 mOsm/kg (285-295); Potassium 4.3 mmol/L (3.5-5.1); Sodium 140 mmol/L (136-145); Total Bilirubin 0.3 mg/dL (0.15-1.2); Total Protein 6.9 g/dL (6.6-8.7)
== END 2022-07-18 09:56 | disposition home or self-care (01) ==
PROVIDERS: Emergency Provider Physician Assistant
DX: T40.411A Poisoning by fentanyl or fentanyl analogs, accidental (unintentional), initial encounter (principal)
CPT/HCPCS: 71045; 80053; 85025; 96374; 99285; J2310

== ENCOUNTER 2022-10-23 17:26 | Emergency (ER) | payer MEDICAID, SELFPAY ==
[2022-10-23] VITALS (9 sets, daily range): BP systolic 104–121; BP diastolic 71–82; PULSE 95–109; RESP 14–19; TEMP 36.8; O2SAT 95–100
--- NOTE | 2022-10-23 17:38 | XRR_ITS ---
PROCEDURE INFORMATION: Exam: XR Chest Exam date and time: 10/23/2022 6:46 PM Age: 52 years old Clinical indication: Other: Seizure activity; Additional info: AMS TECHNIQUE: Imaging protocol: Radiologic exam of the chest. Views: 1 view. COMPARISON: CR XR chest 1V portable [id number] 07/18/2022 10:16 AM FINDINGS: Lungs: Emphysematous changes of the lungs. No consolidation. Pleural spaces: Unremarkable. No pleural effusion. No pneumothorax. Heart/Mediastinum: Unremarkable. No cardiomegaly. Bones/joints: Unremarkable. XR/XR chest 1V portable [id number] IMPRESSION: No acute findings.
--- NOTE | 2022-10-23 17:38 | CTR_ITS ---
PROCEDURE INFORMATION: Exam: CT Head Without Contrast Exam date and time: 10/23/2022 6:17 PM Age: 52 years old Clinical indication: Condition or disease; Convulsions or seizures; Prior surgery; Surgery type: Aneurysm coil/clip; Patient HX: Witnessed seizure. ; Additional info: AMS TECHNIQUE: Imaging protocol: Computed tomography of the head without contrast. Radiation optimization: All CT scans at this facility use at least one of these dose optimization techniques: automated exposure control; mA and/or kV adjustment per patient size (includes targeted exams where dose is matched to clinical indication); or iterative reconstruction. REPORTING DATA: Count of CT and Cardiac NM exams in prior 12 months: This patient has received 3 known CTs and 0 known cardiac nuclear medicine studies in the 12 months prior to the current study. COMPARISON: CT head wo con* [id number] 01/30/2022 11:28 PM RADIATION DOSE METRICS: Total DLP (mGy-cm): 968.88 FINDINGS: Brain: Right parasellar aneurysm coil again noted. No hemorrhage. No edema. No significant white matter disease. No mass effect. Cerebral ventricles: No ventriculomegaly. Paranasal sinuses: Visualized sinuses are unremarkable. No fluid levels. Mastoid air cells: Visualized mastoid air cells are well aerated. Bones/joints: Unremarkable. No acute fracture. Soft tissues: Unremarkable. CT/CT head wo con* [id number] IMPRESSION: No acute intracranial abnormality.
--- NOTE | 2022-10-23 17:39 | ECG_ITS ---
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 Measurements Intervals [place] Rate: 103 P: 84 PA: 149 QRS: -17 QRSD: 85 T: 72 QT: 333 QTc: 438 Interpretive Statements SINUS TACHYCARDIA ABNORMAL RHYTHM ECG Compared to ECG 01/30/2022 22:00:47 Indeterminate axis no longer present Myocardial infarct finding no longer present Electronically Signed On 10-24-2022 14:18:19 GENETICS PHYSICIAN by Tata Bond M.D. [id number]
--- NOTE | 2022-10-23 17:40 | PC.NURSE ---
UPON ASSESSMENT PT HAS WORD SALAD AND IN NOT ALERT OR ORIENTED AT THIS TIME. DR. AGUIAR WAS NOTIFED NO FURTHER ORDERS AT THIS TIME
[2022-10-23 18:10] LABS: Basophils # 0.2 10^3/uL (0.0-0.1); Basophils % 0.5 %; Hematocrit 39.9 % (37.0-47.0); Hemoglobin 12.8 g/dL (11.5-15.3); Lymphocytes # 1.4 10^3/uL (0.8-4.8); Lymphocytes % 3.5 %; Mean Corpuscular HGB Conc 32.1 g/dL (30.0-36.0); Mean Corpuscular Hemoglobin 28.9 pg (28.0-34.0); Mean Corpuscular Volume 90.1 fl (81-99); Mean Platelet Volume 12.7 fL (7.4-10.4); Monocytes # 0.7 10^3/uL (0.2-0.9); Monocytes % 1.7 %; Neutrophils # 37.69 10^3/uL (1.8-7.7); Neutrophils % 92.8 %; Nucleated Red Blood Cells % 0 %; Platelet Count 127 10^3/cmm (130-400); Red Blood Count 4.43 10^6/uL (4.1-5.3); Red Cell Distribution Width 15.6 % (12.1-15.1)
[2022-10-23 18:13] LABS: White Blood Count 40.6 10^3/uL (4.0-10.0)
[2022-10-23 18:17] LABS: Glucose Point of Care 112 mg/dL (70-110)
[2022-10-23 18:26] LABS: Alanine Aminotransferase 282 U/L (0-33); Albumin Level 3.9 g/dL (3.5-5.2); Alcohol Level < 10 mg/dL (0-10); Alkaline Phosphatase 123 U/L (35-105); Aspartate Amino Transferase 259 U/L (0-32); Blood Urea Nitrogen 17 mg/dL (6-20); Calcium 8.9 mg/dL (8.5-10.5); Carbon Dioxide 25 mmol/L (22-29); Chloride 96 mmol/L (98-107); Globulin 2.6 g/dL (1.3-4.6); Glomerular Filtration Rate 88.2 mL/min (90-130); Glucose 119 mg/dL (65-115); Osmolality Calculated 285 mOsm/kg (285-295); Sodium 136 mmol/L (136-145); Total Bilirubin 0.4 mg/dL (0.15-1.2); Total Protein 6.5 g/dL (6.6-8.7)
[2022-10-23 18:27] LABS: Anion Gap 18.8 (5-19); Potassium 3.8 mmol/L (3.5-5.1)
--- NOTE | 2022-10-23 18:44 | W.ED.SEIZURE ---
HPI - Seizure General: Chief Complaint: Seizure Stated Complaint: POSSIBLE SEIZURES Time Seen by Provider: 10/23/22 17:35 Source: patient and EMS Mode of arrival: EMS Limitations: no limitations History of Present Illness: HPI Narrative: 52-year-old female has a history of IV drug use EMS states they were called out earlier for possible to mental status she was fine states that she was at a known drug house they state they were called back and she is now altered the patient first arrived again she was not answering questions and per EMS she was answering questions she will awake now she is able to tell me her name she is unsure what happened at scene they said possibly a seizure she is unsure where she is or the date but she is able to tell me her name and answer some questions but is confused. Seizure History: Yes Place: Home Review of Systems General: Reports: ROS unobtainable due to mental status PFS ED PFSH: Medical History (Updated 10/23/22 @ 22:27 by Jhonatan Bey MD) Drug use Migraine Seizure Tobacco dependence Surgical History Status post coil embolization of cerebral aneurysm Social History (Updated 10/23/22 @ 21:59 by Jose Aragon MD) Smoking and tobacco status: current every day smoker Substance/Drug Use: current Physical Exam Const: COMMON NORMALS: negative for patient oriented x3 GENERAL APPEARANCE: ill appearing OTHER: able to tell me her name but not sure date or where she is out HENMT: COMMON NORMALS: normocephalic and atraumatic HEAD & SCALP: normocephalic and atraumatic Eye: COMMON NORMALS: Equal, round and reactive pupils present and EOMs intact bilaterally PUPIL: Yes Equal, round and reactive pupils present Neck/C-Spine: COMMON NORMALS: full ROM and supple Chest: COMMONS NORMALS: normal inspection of the chest and normal palpation of entire chest wall Resp: COMMON NORMALS: normal respiratory effort, No retractions, No use of accessory muscles and clear to auscultation bilaterally AUSCULTATION: clear to auscultation bilaterally Cardio: COMMON NORMALS: regular rate, regular rhythm and No murmurs present (Cardio) RATE: regular rate RHYTHM: regular rhythm GI: COMMON NORMALS: Normal to inspection, nondistended, normoactive bowel sounds present, Soft to palpation, non-tender and no masses PALPATION: Yes Soft to palpation Extremity: COMMON NORMALS: normal to inspection and full ROM Neuro: COMMON NORMALS: moves all extremities and no focal motor deficits; negative for patient oriented x3 Psych: COMMON NORMALS: cooperative; negative for mental status grossly normal Skin: COMMON NORMALS: no rashes or lesions noted and no wounds GENERAL SKIN EXAM: no rashes or lesions noted Course Vital Signs: Vital signs: Vital Signs Temperature 98.2 F 10/23/22 17:28 Pulse Rate 95 10/23/22 22:16 Respiratory Rate 14 10/23/22 22:16 Blood Pressure 108/71 10/23/22 22:16 Pulse Oximetry 95 10/23/22 22:16 Oxygen Delivery Me thod 10/23/22 22:16 MDM - Seizure MDM Narrative Medical decision making narrative: Patient presents after seizure she is now awake alert able answer my questions appropriately her initial lactate was elevated likely due to a seizure second lactate was improved she does have a leukocytosis though that is 40. I talked to her recommended admission and she has been seen by the hospitalist and she had change in iron once the hospitalist had seen her and decided to sign out AMA I went and spoke to her again she states that she just does not like hospitals does not want to stay at all I informed her she could have a very serious life-threatening infection that we need to rule out she understands the risks and did sign out AGAINST MEDICAL ADVICE we will try to get her follow-up with a primary care doctor. Lab Data 10/23/22 18:00 10/23/22 18:00 Labs: Radiology Impressions Chest X-Ray 10/23/22 17:38 IMPRESSION: No acute findings. Head CT 10/23/22 17:38 IMPRESSION: No acute intracranial abnormality. Laboratory Results WBC 40.6 10^3/uL (4.0-10.0) H* 10/23/22 18:00 RBC 4.43 10^6/uL (4.1-5.3) 10/23/22 18:00 Hgb 12.8 g/dL (11.5-15.3) 10/23/22 18:00 Hct 39.9 % (37.0-47.0) 10/23/22 18:00 MCV 90.1 fl (81-99) 10/23/22 18:00 MCH 28.9 pg (28.0-34.0) 10/23/22 18:00 MCHC 32.1 g/dL (30.0-36.0) 10/23/22 18:00 RDW 15.6 % (12.1-15.1) H 10/23/22 18:00 Plt Count 127 10^3/cmm (130-400) L 10/23/22 18:00 MPV 12.7 fL (7.4-10.4) H 10/23/22 18:00 Neut % (Auto) 92.8 % 10/23/22 18:00 Lymph % (Auto) 3.5 % 10/23/22 18:00 [place] % (Auto) 1.7 % 10/23/22 18:00 Eos % (Auto) 0.0 % 10/23/22 18:00 Baso % (Auto) 0.5 % 10/23/22 18:00 Neut # (Auto) 37.69 10^3/uL (1.8-7.7) H 10/23/22 18:00 Lymph # (Auto) 1.4 10^3/uL (0.8-4.8) 10/23/22 18:00 [place] # (Auto) 0.7 10^3/uL (0.2-0.9) 10/23/22 18:00 Eos # (Auto) 0.0 10^3/uL (0.0-0.8) 10/23/22 18:00 Baso # (Auto) 0.2 10^3/uL (0.0-0.1) H 10/23/22 18:00 Nucleated RBC % (auto) 0 % 10/23/22 18:00 Nucleated RBCs # 0.0 /100WBC 10/23/22 18:00 Sodium 136 mmol/L (136-145) 10/23/22 18:00 Potassium 3.8 mmol/L (3.5-5.1) 10/23/22 18:00 Chloride 96 mmol/L (98-107) L 10/23/22 18:00 Carbon Dioxide 25 mmol/L (22-29) 10/23/22 18:00 Anion Gap 18.8 (5-19) 10/23/22 18:00 BUN 17 mg/dL (6-20) 10/23/22 18:00 Creatinine 0.7 mg/dL (0.5-0.9) 10/23/22 18:00 GFR Calculation 88.2 mL/min (90-130) L 10/23/22 18:00 Glucose 119 mg/dL (65-115) H 10/23/22 18:00 POC Glucose 112 mg/dL (70-110) H 10/23/22 18:13 Calculated Osmolality 285 mOsm/kg (285-295) 10/23/22 18:00 Lactate 2.7 mmol/L (0.5-2.2) H 10/23/22 20:35 Calcium 8.9 mg/dL (8.5-10.5) 10/23/22 18:00 Total Bilirubin 0.4 mg/dL (0.15-1.2) 10/23/22 18:00 AST 259 U/L (0-32) H 10/23/22 18:00 ALT 282 U/L (0-33) H 10/23/22 18:00 Alkaline Phosphatase 123 U/L (35-105) H 10/23/22 18:00 Creatine Kinase 73 U/L (26-192) 10/23/22 18:00 Total Protein 6.5 g/dL (6.6-8.7) L 10/23/22 18:00 Albumin 3.9 g/dL (3.5-5.2) 10/23/22 18:00 Globulin 2.6 g/dL (1.3-4.6) 10/23/22 18:00 Urine Color Yellow (Yellow) 10/23/22 20:11 Urine Appearance Clear (CLEAR) 10/23/22 20:11 Urine pH 7 (5-7) 10/23/22 20:11 Ur Specific [place] 1.005 (1.005-1.030) 10/23/22 20:11 Urine Protein Trace (Negative) 10/23/22 20:11 Urine Glucose (UA) Norm (Normal) 10/23/22 20:11 Urine Ketones Negative (Negative) 10/23/22 20:11 Urine Blood Neg (Negative) 10/23/22 20:11 Urine Nitrate Negative (Negative) 10/23/22 20:11 Urine Bilirubin Neg (Negative) 10/23/22 20:11 Urine Urobilinogen Norm mg/dL (Negative) 10/23/22 20:11 Ur Leukocyte Esterase Negative (Negative) 10/23/22 20:11 Urine RBC 0-4 /hpf (0-2) H 10/23/22 20:11 Urine WBC 0-4 /hpf (0-5) H 10/23/22 20:11 Ur Squamous Epith Cells 0-4 /hpf (0-5) H 10/23/22 20:11 Amorphous Sediment Not Reportable 10/23/22 20:11 Urine Bacteria Trace /hpf (NONE) 10/23/22 20:11 Urine Mucus 1+ /hpf 10/23/22 20:11 Urine Opiates Screen Negative ng/mL (Negative) 10/23/22 20:11 Ur Barbiturates Screen Negative ng/mL (Negative) 10/23/22 20:11 Ur Phencyclidine Scrn Negative ng/mL (Negative) 10/23/22 20:11 Ur Amphetamines Screen Negative ng/mL (Negative) 10/23/22 20:11 U Benzodiazepines Scrn Positive ng/mL (Negative) H 10/23/22 20:11 Urine Cocaine Screen Negative ng/mL (Negative) 10/23/22 20:11 U Marijuana (THC) Screen Negative ng/mL (Negative) 10/23/22 20:11 Ethyl Alcohol < 10 mg/dL (0-10) 10/23/22 18:00 Discharge Plan Discharge Patient Disposition: Left Against Medical Advice Clinical Impression: Leukocytosis, Generalized seizure Condition: Stable Prescriptions: New Keppra 500 mg tablet 500 mg PO BID Qty: 60 0RF No Action Womens Daily Gummies 200 mcg Tablet,Chewable 1 tab PO DAILY Discharge Diet: Advance as tolerated Discharge Activity: Resume usual activity Patient Instructions: Seizures Coding Level of Care Code ED Full Stack Developer for Kemi Padilla
[2022-10-23] MEDS: sodium chloride 0.9% 1,000 ML 999 ML IV ×2 (18:52→19:32)
--- NOTE | 2022-10-23 19:00 | PC.NURSE ---
Report from MICHELLE Holder. Pt returned from testing. Pt is drowsy, but is alert and oriented to person, place, and time. No needs at this time. [place] provided.
[2022-10-23 19:08] LABS: Creatine Phosphokinase 73 U/L (26-192)
[2022-10-23 19:12] LABS: Lactate (Lactic Acid level) 4.6 mmol/L (0.5-2.2)
[2022-10-23] MEDS: piperacillin-tazobactam 3.375 GM in sodium chloride 0.9% (plus) 50 ML IV (19:33)
[2022-10-23] MEDS: vancomycin 1,000 MG in sodium chloride 0.9% 250 ML 250 MG IV (20:25)
[2022-10-23 20:28] LABS: Amphetamines Screen Urine Negative (Negative); Barbiturates Screen Urine Negative (Negative); Benzodiazepines Screen Urine Positive (Negative); Cocaine Screen Urine Negative (Negative); Opiate Screen Urine Negative (Negative); PCP Screen Urine Negative (Negative); THC Screen Urine Negative (Negative)
[2022-10-23 20:48] LABS: Add Urine Microscopic? YES; Bilirubin Urine Neg (Negative); Blood Urine Neg (Negative); Glucose Urine UA Norm (Normal); Ketones Urine Negative (Negative); Leukocyte Esterase Urine Negative (Negative); Nitrate Urine Negative (Negative); Protein Urine Trace (Negative); Specific Gravity, Urine 1.005 (1.005-1.030); Urine Appearance Clear (CLEAR); Urine Color Yellow (Yellow); Urobilinogen Urine Norm (Negative); pH Urine 7 (5-7)
[2022-10-23 20:50] LABS: Bacteria Urine TRACE /hpf; Mucus Urine 1+ /hpf; RBC Urine 0-4 /hpf (0-2); Squamous Epithelial Cell Urine 0-4 /hpf (0-5); WBC Urine 0-4 /hpf (0-5)
[2022-10-23 21:06] LABS: Lactate (Lactic Acid level) 2.7 mmol/L (0.5-2.2)
--- NOTE | 2022-10-23 21:55 | P.CONIM_ITS ---
Providers/Reason For Consult Consulting Physician/Specialty*: Jose Aragon MD, hospitalist Reason for Consult*: Admission, seizure Requesting Physician: Dr. Bey History of Present Illness History of Present Illness Reanna Muniz is a 52 year old female who presented to the emergency department after what sounds like 2 seizures, witnessed by , lasting less than 30 seconds and associated with at least a postictal state following the first 1. The second 1 she received some Ativan and come to the emergency department. reports she has had 5 seizures over her lifetime. He reports she has a fentanyl user, and amphetamine user and typically uses IV medication. When I entered the room to review admission, patient and both wish to go home. I discussed with them the concerns that the emergency department physician had, which I have as well, that she had several seizures that were witnessed. These could be secondary to her drug use, withdrawal if she had not used soon, or even related to an underlying seizure disorder given the fact she has had a coil for an intracerebral aneurysm in the past. and patient relates she has had no fevers. She has chronic back pain with right-sided sciatica as she suffers with constantly. They consider going to a methadone clinic, but do not have the money for such. She denies any suicidal or homicidal ideation. Review of Systems General: Reports: 10 or more systems reviewed and unremarkable except in HPI and below Medications/Allergies Home Medications Medication Instructions Recorded Confirmed Last Taken Type multivitamin with minerals-folic 1 tab PO DAILY 07/18/22 07/18/22 Unknown History acid 200 mcg chewable tablet (Womens Daily Gummies) levetiracetam 500 mg tablet 500 mg PO BID #60 tabs 10/23/22 Unknown Rx (Keppra) Allergies Allergy/AdvReac Type Severity Reaction Status Date / Time sumatriptan [From Imitrex] Allergy Feelings Verified 07/18/22 09:25 of Sharp needles PFSH Acute PFSH: Medical History (Updated 10/23/22 @ 22:05 by Jose Aragon MD) Drug use Migraine Seizure Tobacco dependence Surgical History Status post coil embolization of cerebral aneurysm Social History (Updated 10/23/22 @ 21:59 by Jose Aragon MD) Smoking and tobacco status: current every day smoker Substance/Drug Use: current Vitals/I&O/Wt Last Vital Signs Temp 98.2 F 10/23/22 17:28 Pulse 99 10/23/22 20:00 Resp 18 10/23/22 20:00 BP 121/75 10/23/22 20:00 Pulse Ox 98 10/23/22 20:00 O2 Del Method 10/23/22 18:08 10/23/22 10/23/22 10/23/22 06:59 14:59 22:59 Intake Total 1050 / 1050 Balance 1050 / 1050 Physical Exam Narrative: General exam is a white female, who comes alert easily, who reports she has some back pain radiating down her leg. She reports no neck pain curr ently. She denies any fever. Had complained of a headache but does not voice this currently. HEENT: Pupils equally round. Oropharynx clear. Neck is supple no lymphadenopathy thyromegaly. Movement does not seem to elicit any discomfort. Cardiovascular regular rate and rhythm, without murmur Lungs clear no wheezing or crackles. Diminished breath sounds are noted bilaterally Abdomen is soft with positive bowel sounds. Scaphoid. No obvious organomegaly exam is deferred Extremities no cyanosis clubbing edema, cap refill brisk Skin no rash Neuro no focal deficits are obvious Data 10/23/22 18:00 10/23/22 18:00 Other Labs: Initial lactate 4.6 with repeat of 2.7 Liver function tests elevated with AST of 259, ALT 282, alk phos 123. Bilirubin is normal. Albumin 2.6 Urinalysis essentially negative Urine drug screen positive for benzodiazepines. Alcohol level less than 10. Calcium 8.9 CT head no acute findings Chest x-ray by my read negative Blood cultures were obtained EKG by my read demonstrates mild sinus tachycardia, left axis deviation, nonspecific ST-T wave changes. Micro: Microbiology 10/23/22 19:00 Blood Culture - Preliminary Blood SPECIMEN COLLECTED 10/23/22 18:53 Blood Culture - Preliminary Blood SPECIMEN COLLECTED A&P Assessment and plan (1) Seizure: I do believe the patient likely had several seizures tonight based on her 's description it was present for the event. Ideally it would be good to observe her overnight, and consideration for initiation of Keppra Unfortunately, the patient and the refused admission. Risks and benefits including and/or permanent disability were discussed in detail with them both. They do report difficulty with obtaining healthcare secondary to finances, and I discussed with the ER physician that this would be an appropriate referral to the psychosocial rehabilitation counselor tomorrow. (2) Leukocytosis: No obvious infectious cause currently and may be secondary to seizure. Blood cultures were appropriate to get. Cannot rule out bacteremia/endocarditis in this patient who uses IV drugs. Either way they refuse admission currently. (3) Altered mental status: Consistent with acute metabolic encephalopathy secondary to seizure. This is now resolved (4) Acidosis, lactic: Likely secondary to seizure (5) Drug use: Ongoing chronic drug use. They report that finances are an obstacle to being seen at the methadone clinic. (6) Transaminitis: Transaminitis may be secondary to seizure. Cannot rule out chronic hepatitis B or C. Would recommend follow-up as an outpatient. We will try to arrange for resources through the discharge/psychosocial rehabilitation counselor tomorrow Plan Other medical problems as listed in past medical history, to include previous coiling of intracerebral aneurysm Discussed case in detail with emergency department physician. Consult Attestations Medical Necessity Statement: Not applicable Diagnoses Seizure R56.9 Leukocytosis D72.829 Altered mental status R41.82 Acidosis, lactic E87.2 Drug use F19.90 Transaminitis R74.01 Time Spent (min) 53
--- NOTE | 2022-10-25 15:52 | DCPLANNER ---
Addendum entered by Jolanta Archer 10/26/22 09:40: verification manager called phone number [phone] - unable to speak with patent at this time - voicemail box is full. Original Note: verification manager had message to speak with patient about getting established with a primary care physician. verification manager called phone number [phone], person that answered the phone stated that the patient was not with him at this time. verification manager left a message with patients , stating that if patient would like help in getting established with a primary care physician to call cyanide case hardener.
== END 2022-10-23 22:30 | disposition left against medical advice (07) ==
PROVIDERS: Emergency Provider Emergency Medicine
DX: R56.9 Unspecified convulsions (principal); D72.829 Elevated white blood cell count, unspecified
CPT/HCPCS: 36415; 36416; 70450; 71045; 80053; 80306; 80307; 81001; 82550; 82962; 83605; 85025; 87040; 93005; 96365; 96367; 96375; 99285; J1953; J2543; J3370; J7030; J7050

== ENCOUNTER 2023-02-04 15:03 | Emergency (ER) | payer BC, MEDICAID, SELFPAY ==
[2023-02-04 15:10] VITALS: BP 129/83; PULSE 79; RESP 18; TEMP 36.8; O2SAT 100
--- NOTE | 2023-02-04 17:11 | ED_ITS ---
HPI - Animal Bite General: Chief Complaint: Animal Bite Stated Complaint: Lac inner elbow Time Seen by Provider: 02/04/23 17:11 History of Present Illness: 52-year-old female comes in today for complaints of injury to the left inner elbow. Patient was trying to separate her dogs were fighting. Patient was bit by one of the dogs causing a laceration to the inner arm. Bleeding is controlled. Patient reports no chronic medical problems except seizure episodes. Review of Systems General: Reports: 10 or more systems reviewed and unremarkable except in HPI and below Card: Denies: chest pain Resp: Denies: dyspnea GI: Denies: nausea or vomiting : Denies: difficulty voiding Musc: Reports: extremity pain Skin/Breast: Reports: new lesions (5 cm laceration inner elbow) PFSH ED PFSH: Medical History (Updated 02/04/23 @ 18:06 by COREY Sutton) Drug use Migraine Seizure Tobacco dependence Surgical History Status post coil embolization of cerebral aneurysm Social History (Updated 10/23/22 @ 21:59 by Jose Aragon MD) Smoking and tobacco status: current every day smoker Substance/Drug Use: current Physical Exam Const: COMMON NORMALS: alert HENMT: COMMON NORMALS: normocephalic HEAD & SCALP: normocephalic MOUTH: Normal oral and palatal mucosa present Neck/C-Spine: COMMON NORMALS: full ROM Resp: COMMON NORMALS: normal respiratory effort and clear to auscultation bila terally AUSCULTATION: clear to auscultation bilaterally Cardio: COMMON NORMALS: regular rate and regular rhythm RATE: regular rate RHYTHM: regular rhythm GI: COMMON NORMALS: Soft to palpation PALPATION: Yes Soft to palpation Extremity: RIGHT UPPER EXTREMITY: Yes elbow joint (5 cm laceration, no bleeding, bone appears intact) Right elbow: Yes inspection, Yes palpation and Yes ROM Neuro: SENSORIUM/ORIENTATION: Yes alert Skin: TRAUMA: laceration (Right inner elbow) linear Procedures Laceration Laceration 1: Site: upper extremity Side (If applicable): right Size (cm): 5 Description: linear Local Anesthetic: lidocaine 1% Amount of anesthesia used (mL): 10 Pre-repair: wound explored and irrigated extensively Skin layer closed with: nylon Size (cm): 4-0 Number of sutures: 6 Technique: horizontal mattress Course Vital Signs: Vital signs: Vital Signs Temperature 98.2 F 02/04/23 15:10 Pulse Rate 79 02/04/23 15:10 Respiratory Rate 18 02/04/23 15:10 Blood Pressure 129/83 02/04/23 15:10 Pulse Oximetry 100 02/04/23 15:10 Oxygen Delivery Me thod Room Air 02/04/23 15:10 MDM - Animal Bite Medical Decision Making Patient comes in for a laceration to the right elbow. Patient was breaking up her dogs when they excellently bit her in the right arm. Patient has a 5 cm laceration to the inner arm with several puncture wound surrounding it. Patient has bruising and swelling. Patient is guarded with movement due to pain. Distal pulses and sensation intact. Differential diagnosis includes fracture, tendon injury, contusions, laceration, puncture wound. Under local anesthetic wounds were cleaned and then the laceration was closed loosely with 6 horizontal mattress sutures. Patient be kept on antibiotics and medication for pain. Request case management have patient follow-up with orthopedic surgeon for further evaluation and treatment. Patient reported understanding and agreed to plan. Lab Data Radiology Impressions Elbow X-Ray 02/04/23 17:16 IMPRESSION: 1. No fracture or acute osseous abnormality. 2. Soft tissue lucency or soft tissue injury. Discharge Plan Discharge Patient Disposition: Home Clinical Impression: Dog bite Qualifiers: Encounter type: initial encounter Qualified Code(s): W54.0XXA - Bitten by dog, initial encounter Laceration of elbow Qualifiers: Encounter type: initial encounter Laterality: right Qualified Code(s): S51.011A - Laceration without foreign body of right elbow, initial encounter Puncture wound of elbow Qualifiers: Encounter type: initial encounter Laterality: right Qualified Code(s): S51.031A - Puncture wound without foreign body of right elbow, initial encounter Condition: Stable Prescriptions: New hydrocodone-acetaminophen 5-325 mg tablet 1 tab PO Q6H PRN (Reason: pain (scale score 7-10)) Qty: 12 0RF ketorolac 10 mg tablet 10 mg PO Q8H PRN (Reason: pain) 5 Days Qty: 15 0RF amoxicillin-pot clavulanate 875-125 mg tablet 1 tab PO BID Qty: 20 0RF No Action Womens Daily Gummies 200 mcg Tablet,Chewable 1 tab PO DAILY Keppra 500 mg tablet 500 mg PO BID Qty: 60 0RF Discharge Orders: Discharge ED (Routine); Ordered 02/04/23 Ordered By: David Meraz Discharge Diet: Usual diet Discharge Activity: Increase activity as tolerated Patient Instructions: Animal Bite (ED), Laceration (ED), Opioid Safety Activity Restrictions/Additional Instructions: Keep wound clean and dry. Use acetaminophen and/or ketorolac to control pain. Do not take ibuprofen or naproxen with ketorolac. Use hydrocodone for severe pain. Use ice or heat for further pain relief. Drink plenty of water with medications. Take antibiotics as directed. Follow-up with orthopedic surgeon for further evaluation and treatment as needed. Return to ED for new concerns. Coding Level of Care Code ED Motor Equipment Sergeant for Kemi Padilla
--- NOTE | 2023-02-04 17:16 | XRR_ITS ---
PROCEDURE INFORMATION: Exam: XR Right Elbow Exam date and time: 02/04/2023 5:22 PM Age: 52 years old Clinical indication: Injury or trauma; Right; Injury date: Today; Patient HX: PT has dog bite RT elbow. TECHNIQUE: Imaging protocol: Radiologic exam of the right elbow. Views: 3 or more views. COMPARISON: No relevant prior studies available. FINDINGS: Bones/joints: No fracture or dislocation is seen about the right elbow. Osseous structures show no significant abnormality. No abnormal fat pad or effusion is seen about the distal humerus on the lateral view. Soft tissues: Soft tissue lucency is seen about the anterolateral soft tissues related to soft tissue injury. No radiopaque soft tissue foreign body XR/XR elbow RT min 3V* [id number] IMPRESSION: 1. No fracture or acute osseous abnormality. 2. Soft tissue lucency or soft tissue injury.
[2023-02-04] MEDS: amoxicillin-clav 875-125 mg Tablet 1 TAB PO (17:30)
[2023-02-04] MEDS: HYDROcodone-acetaminophen 10-325 mg Tablet 1 TAB PO (17:30)
[2023-02-04] MEDS: tetanus-dipt-pertussis 0.5 mL SDV IM (17:30)
[2023-02-04] MEDS: lidocaine 1% INJ 10 mL (per mL) INJECTION (17:32)
[2023-02-04] MEDS: ketorolac 30 mg/mL INJ IM (18:15)
--- NOTE | 2023-02-05 07:51 | DCPLANNER ---
Addendum entered by Jolanta Archer 02/06/23 09:18: manager communication received the following message from the ortho clinic regarding follow up appointment: attempt made to contact patient - number not accepting calls at this time - will mail letter to call to schedule howard/ farzad oleary next week per dr pelletier Original Note: manager communication had message to schedule a follow up appointment for patient with ortho. manager communication sent patients information to the front office staff at ortho. Patients information will be printed and reviewed. Clinic will call patient with appointment information.
--- NOTE | 2023-02-05 11:52 | DCPLANNER ---
assistant restaurant general manager called patient due to no primary care physician - no answer at this time, a voicemail was left for patient to return leather case finisher phone call.
== END 2023-02-04 18:48 | disposition home or self-care (01) ==
PROVIDERS: Emergency Provider Nurse Practitioner Family
DX: S51.052A Open bite, left elbow, initial encounter (principal); W54.0XXA Bitten by dog, initial encounter; F17.210 Nicotine dependence, cigarettes, uncomplicated; Z23 Encounter for immunization
CPT/HCPCS: 12002; 73080; 90471; 90715; 96372; 99284; J1885

== ENCOUNTER 2023-04-22 00:41 | Emergency (ER) | payer BC, MEDICAID, SELFPAY ==
[2023-04-22 00:41] VITALS: BP 126/74; PULSE 104; RESP 16; TEMP 37.3; O2SAT 99; BMI 21.0
--- NOTE | 2023-04-22 01:15 | CTR_ITS ---
PROCEDURE INFORMATION: Exam: CT Head Without Contrast Exam date and time: 04/22/2023 1:43 AM Age: 53 years old Clinical indication: Condition or disease; Convulsions or seizures; Prior surgery; Surgery date: 6+ months; Surgery type: Aneurysm clip; Patient HX: Seizure activity. History of seizure disorder. TECHNIQUE: Imaging protocol: Computed tomography of the head without contrast. Radiation optimization: All CT scans at this facility use at least one of these dose optimization techniques: automated exposure control; mA and/or kV adjustment per patient size (includes targeted exams where dose is matched to clinical indication); or iterative reconstruction. REPORTING DATA: Count of CT and Cardiac NM exams in prior 12 months: This patient has received [address] and 0 known cardiac nuclear medicine studies in the 12 months prior to the current study. COMPARISON: CT head wo con* [id number] 10/23/2022 6:17 PM RADIATION DOSE METRICS: Total DLP (mGy-cm): 931.78 FINDINGS: Brain: No hemorrhage. Unremarkable white matter. No mass effect. Preserved jones-white interfaces. Metallic coils are situated to the right of the sella turcica, potentially site of prior endovascular aneurysm treatment. Cerebral ventricles: No ventriculomegaly. Paranasal sinuses: Visualized sinuses are unremarkable. No fluid levels. Mastoid air cells: Visualized mastoid air cells are well aerated. Bones/joints: Unremarkable. No acute fracture. Soft tissues: Unremarkable. CT/CT head wo con* [id number] IMPRESSION: No evidence of acute intracranial hemorrhage, mass effect, or edema. No change from prior.
--- NOTE | 2023-04-22 01:15 | XRR_ITS ---
PROCEDURE INFORMATION: Exam: XR Chest Exam date and time: 04/22/2023 1:22 AM Age: 53 years old Clinical indication: Patient HX: Seizure activity. History of seizure disorder. TECHNIQUE: Imaging protocol: Radiologic exam of the chest. Views: 1 view. COMPARISON: CR XR chest 1V portable [id number] 10/23/2022 6:46 PM FINDINGS: Lungs: Lungs are hyperinflated. Clear parenchyma. Pleural spaces: No pleural effusion. No pneumothorax. Heart/Mediastinum: Cardiac silhouette is normal in size for technique. Bones/joints: Age appropriate. XR/XR chest 1V portable [id number] IMPRESSION: Hyperinflated but clear lungs. No other acute cardiopulmonary abnormality.
--- NOTE | 2023-04-22 01:31 | ECG_ITS ---
[facility] Test Date: 2023-04-22 Pat Name: Reanna Muniz Department: Room: Gender: Female Typing Section Chief: : 1970 Requested By: William Burnett Order Number: [id number] Bello MD: Guerrero Anderson M.D. Measurements Intervals [place] Rate: 100 P: 83 [place]: 155 QRS: -45 QRSD: 88 T: 75 QT: 336 QTc: 434 Interpretive Statements SINUS TACHYCARDIA LEFT AXIS DEVIATION [QRS AXIS < -30] POSSIBLE RIGHT VENTRICULAR CONDUCTION DELAY [RSR (QR) IN V1/V2] SEPTAL MYOCARDIAL INFARCTION , OF INDETERMINATE AGE [40+ ms Q WAVE IN V1/V2] Compared to ECG 10/23/2022 17:46:15 Left-axis deviation now present Myocardial infarct finding now present Electronically Signed On 04-22-2023 8:14:10 CDT by Guerrero Anderson M.D. [id number]
[2023-04-22] MEDS: sodium chloride 0.9% 1,000 ML 999 ML IV (01:32)
[2023-04-22 01:38] LABS: Basophils % 0.5 %; Eosinophils % 0.5 %; Hematocrit 41.8 % (36-47); Lymphocytes # 0.7 10^3/uL (0.8-4.8); Lymphocytes % 13.1 %; Mean Corpuscular HGB Conc 31.3 g/dL (30-55); Mean Corpuscular Hemoglobin 28.5 pg (27-33); Mean Corpuscular Volume 90.9 fl (85-98); Mean Platelet Volume 11.4 fL (7.4-10.4); Monocytes # 0.3 10^3/uL (0.2-0.9); Neutrophils # 4.47 10^3/uL (1.8-7.7); Neutrophils % 80.5 %; Nucleated Red Blood Cells % 0 %; Platelet Count 170 10^3/cmm (157-399); Red Cell Distribution Width 14.3 % (12.1-15.1); White Blood Count 5.56 10^3/uL (3.29-11.43)
--- NOTE | 2023-04-22 01:44 | W.ED.SEIZURE ---
HPI - Seizure General: Chief Complaint: Seizure Stated Complaint: Seizures Time Seen by Provider: 04/22/23 01:04 History of Present Illness: HPI Narrative: 53-year-old female with a history of seizure disorder. She evidently also has a history of fentanyl use and potentially amphetamine use. She presents after 2 episodes of seizure tonight per her 's report. The first 1 lasted around 5 minutes by his estimate. The second 1 lasted around 3 minutes by his estimate. He called 911 after the second 1 started. She was given 2 mg of Ativan by EMS intramuscularly. She presents lethargic. Seizure History: Yes Review of Systems General: Reports: ROS unobtainable due to mental status PFS ED PFSH: Medical History Drug use Migraine Seizure Tobacco dependence Surgical History Status post coil embolization of cerebral aneurysm Social History Smoking and tobacco status: current every day smoker Substance/Drug Use: current Physical Exam Const: GENERAL APPEARANCE: disheveled, lethargic and frail appearing (Mildly) NUTRITIONAL APPEARANCE: thin ORIENTATION/CONSCIOUSNESS: Yes lethargic HENMT: COMMON NORMALS: normocephalic, atraumatic and Normal external nose present HEAD & SCALP: normocephalic and atraumatic FACE & SINUS: normal facial exam and face symmetric NOSE: Normal external nose present MOUTH: tongue normal; no mouth trauma Eye: COMMON NORMALS: Equal, round and reactive pupils present and EOMs intact bilaterally PUPIL: Yes Equal, round and reactive pupils present and Yes Pinpoint pupils Neck/C-Spine: GENERAL: Yes trachea midline Chest: CHEST: Yes Symmetrical chest wall rise Resp: COMMON NORMALS: clear to auscultation bilaterally EFFORT & INSPECTION: Yes decreased respiratory effort (Mild) AUSCULTATION: clear to auscultation bilaterally Cardio: COMMON NORMALS: regular rate and regular rhythm RATE: regular rate RHYTHM: regular rhythm GI: COMMON NORMALS: Normal to inspection, nondistended, normoactive bowel sounds present and Soft to palpation PALPATION: Yes Soft to palpation Extremity: NARRATIVE EXTREMITY EXAM: No injury Neuro: RALPH COMA SCALE: document GCS findings Ralph coma scale eye opening: To sound Ralph coma scale verbal response: Confused Ralph coma scale motor response: Localising Ralph coma scale total score: 12 SENSORIUM/ORIENTATION: Yes lethargic Psych: ACTIVITY/MOTOR BEHAVIOR: Yes psychomotor slowing Course Vital Signs: Vital signs: Vital Signs Temperature 99.2 F 04/22/23 04:00 Pulse Rate 84 04/22/23 04:00 Respiratory Rate 16 04/22/23 04:00 Blood Pressure 125/79 04/22/23 04:00 Pulse Oximetry 100 04/22/23 04:00 Oxygen Delivery Me thod Nasal Cannula 04/22/23 03:13 Oxygen Flow Rate 3 04/22/23 03:13 MDM - Seizure MDM Narrative Medical decision making narrative: Patient is quite somnolent on arrival. She does arouse to voice. She is somewhat uncooperative, but actually too sleepy to resist treatment. Her is present, and wishes her to be evaluated. I agree is necessary at this point. She also evidently has a history of an aneurysm coiled several years ago at [facility]. Her vitals are stable on room air. Laboratory and CT are pending. Laboratory is largely not remarkable. CT and chest x-ray are negative as well. The patient is still quite somnolent after administration of Ativan by EMS. Her vitals have been stable. Lab Data 04/22/23 01:30 04/22/23 01:30 Labs: Radiology Impressions Chest X-Ray 04/22/23 01:15 IMPRESSION: Hyperinflated but clear lungs. No other acute cardiopulmonary abnormality. Head CT 04/22/23 01:15 IMPRESSION: No evidence of acute intracranial hemorrhage, mass effect, or edema. No change from prior. Laboratory Results WBC 5.56 10^3/uL (3.29-11.43) 04/22/23 01:30 RBC 4.60 10^6/uL (3.85-5.65) 04/22/23 01:30 Hgb 13.10 g/dL (11.27-16.99) 04/22/23 01:30 Hct 41.8 % (36-47) 04/22/23 01:30 MCV 90.9 fl (85-98) 04/22/23 01:30 MCH 28.5 pg (27-33) 04/22/23 01:30 MCHC 31.3 g/dL (30-55) 04/22/23 01:30 RDW 14.3 % (12.1-15.1) 04/22/23 01:30 Plt Count 170 10^3/cmm (157-399) 04/22/23 01:30 MPV 11.4 fL (7.4-10.4) H 04/22/23 01:30 Neut % (Auto) 80.5 % 04/22/23 01:30 Lymph % (Auto) 13.1 % 04/22/23 01:30 [place] % (Auto) 5.0 % 04/22/23 01:30 Eos % (Auto) 0.5 % 04/22/23 01:30 Baso % (Auto) 0.5 % 04/22/23 01:30 Neut # (Auto) 4.47 10^3/uL (1.8-7.7) 04/22/23 01:30 Lymph # (Auto) 0.7 10^3/uL (0.8-4.8) L 04/22/23 01:30 [place] # (Auto) 0.3 10^3/uL (0.2-0.9) 04/22/23 01:30 Eos # (Auto) 0.0 10^3/uL (0.0-0.8) 04/22/23 01:30 Baso # (Auto) 0.0 10^3/uL (0.0-0.1) 04/22/23 01:30 Nucleated RBC % (auto) 0 % 04/22/23 01:30 Nucleated RBCs # 0.0 /100WBC 04/22/23 01:30 Sodium 137 mmol/L (136-145) 04/22/23 01:30 Potassium 4.0 mmol/L (3.5-5.1) 04/22/23 01:30 Chloride 99 mmol/L (98-107) 04/22/23 01:30 Carbon Dioxide 28 mmol/L (22-29) 04/22/23 01:30 Anion Gap 14.0 (5-19) 04/22/23 01:30 BUN 15 mg/dL (6-20) 04/22/23 01:30 Creatinine 0.7 mg/dL (0.5-0.9) 04/22/23 01:30 GFR Calculation 87.9 mL/min (90-130) L 04/22/23 01:30 Glucose 99 mg/dL (65-115) 04/22/23 01:30 Calculated Osmolality 285 mOsm/kg (285-295) 04/22/23 01:30 Calcium 9.2 mg/dL (8.5-10.5) 04/22/23 01:30 Phosphorus 2.9 mg/dL (2.5-4.5) 04/22/23 01:30 Magnesium 2.1 mg/dL (1.7-2.3) 04/22/23 01:30 Total Bilirubin 0.5 mg/dL (0.15-1.2) 04/22/23 01:30 AST 29 U/L (0-32) 04/22/23 01:30 ALT 32 U/L (0-33) 04/22/23 01:30 Alkaline Phosphatase 95 U/L (35-105) 04/22/23 01:30 Total Protein 7.1 g/dL (6.6-8.7) 04/22/23 01:30 Albumin 4.7 g/dL (3.5-5.2) 04/22/23 01:30 Globulin 2.4 g/dL (1.3-4.6) 04/22/23 01:30 Urine Color Yellow (Yellow) 04/22/23 01:40 Urine Appearance Clear (CLEAR) 04/22/23 01:40 Urine pH 5 (5-7) 04/22/23 01:40 Ur Specific [place] 1.030 (1.005-1.030) 04/22/23 01:40 Urine Protein Trace (Negative) 04/22/23 01:40 Urine Glucose (UA) Norm (Normal) 04/22/23 01:40 Urine Ketones Negative (Negative) 04/22/23 01:40 Urine Blood Neg (Negative) 04/22/23 01:40 Urine Nitrate Negative (Negative) 04/22/23 01:40 Urine Bilirubin Neg (Negative) 04/22/23 01:40 Urine Urobilinogen Neg mg/dL (Negative) 04/22/23 01:40 Ur Leukocyte Esterase Negative (Negative) 04/22/23 01:40 Urine RBC None /hpf (0-2) 04/22/23 01:40 Urine WBC None /hpf (0-5) 04/22/23 01:40 Ur Squamous Epith Cells None /hpf (0-5) 04/22/23 01:40 Amorphous Sediment Not Reportable 04/22/23 01:40 Urine Bacteria Trace /hpf (NONE) 04/22/23 01:40 Urine Opiates Screen Negative ng/mL (Negative) 04/22/23 01:40 Ur Barbiturates Screen Negative ng/mL (Negative) 04/22/23 01:40 Ur Phencyclidine Scrn Negative ng/mL (Negative) 04/22/23 01:40 Ur Amphetamines Screen Negative ng/mL (Negative) 04/22/23 01:40 U Benzodiazepines Scrn Positive ng/mL (Negative) H 04/22/23 01:40 Urine Cocaine Screen Negative ng/mL (Negative) 04/22/23 01:40 U Marijuana (THC) Screen Positive ng/mL (Negative) H 04/22/23 01:40 Ethyl Alcohol < 10 mg/dL (0-10) 04/22/23 01:30 Discharge Plan Discharge Patient Disposition: Home Clinical Impression: Seizure Condition: Stable Prescriptions: Continued Keppra 500 mg tablet 500 mg PO BID Qty: 60 0RF No Action hydrocodone-acetaminophen 5-325 mg tablet 1 tab PO Q6H PRN (Reason: pain (scale score 7-10)) Qty: 12 0RF amoxicillin-pot clavulanate 875-125 mg tablet 1 tab PO BID Qty: 20 0RF Womens Daily Gummies 200 mcg Tablet,Chewable 1 tab PO DAILY Discharge Orders: Discharge ED (Routine); Ordered 04/22/23 Ordered By: William Montanez Patient Instructions: Recurrent Seizures in Adults (ED), Opioid Safety, Pain Management Activity Restrictions/Additional Instructions: Case management will contact you regarding a follow-up outpatient appointment with neurology. You should receive a call from them sometime this week. Return for repetitive episodes of seizure, mental status changes, weakness, worsening headache, other concerning symptoms. Coding Level of Care Code ED [employer] Set Up Technician for Kemi Padilla
[2023-04-22 01:55] VITALS: BP 103/61; PULSE 104; RESP 16; O2SAT 92
[2023-04-22 01:58] LABS: Amphetamines Screen Urine Negative (Negative); Barbiturates Screen Urine Negative (Negative); Benzodiazepines Screen Urine Positive (Negative); Cocaine Screen Urine Negative (Negative); Opiate Screen Urine Negative (Negative); PCP Screen Urine Negative (Negative); THC Screen Urine Positive (Negative)
[2023-04-22 02:11] LABS: Alanine Aminotransferase 32 U/L (0-33); Albumin Level 4.7 g/dL (3.5-5.2); Alkaline Phosphatase 95 U/L (35-105); Aspartate Amino Transferase 29 U/L (0-32); Blood Urea Nitrogen 15 mg/dL (6-20); Calcium 9.2 mg/dL (8.5-10.5); Carbon Dioxide 28 mmol/L (22-29); Chloride 99 mmol/L (98-107); Globulin 2.4 g/dL (1.3-4.6); Glomerular Filtration Rate 87.9 mL/min (90-130); Glucose 99 mg/dL (65-115); Magnesium 2.1 mg/dL (1.7-2.3); Osmolality Calculated 285 mOsm/kg (285-295); Phosphorus 2.9 mg/dL (2.5-4.5); Sodium 137 mmol/L (136-145); Total Bilirubin 0.5 mg/dL (0.15-1.2); Total Protein 7.1 g/dL (6.6-8.7)
[2023-04-22 02:17] LABS: Alcohol Level < 10 mg/dL (0-10)
[2023-04-22 02:20] LABS: Add Urine Microscopic? YES; Bilirubin Urine Neg (Negative); Blood Urine Neg (Negative); Glucose Urine UA Norm (Normal); Ketones Urine Negative (Negative); Leukocyte Esterase Urine Negative (Negative); Nitrate Urine Negative (Negative); Protein Urine Trace (Negative); Urine Appearance Clear (CLEAR); Urine Color Yellow (Yellow); Urobilinogen Urine Neg (Negative); pH Urine 5 (5-7)
[2023-04-22 02:22] LABS: Add Urine Culture? No; Bacteria Urine TRACE /hpf
[2023-04-22 02:32] VITALS: BP 103/61; PULSE 89; RESP 16; O2SAT 100
[2023-04-22 03:13] VITALS: BP 125/79; PULSE 84; RESP 16; O2SAT 100
--- NOTE | 2023-04-22 03:14 | PC.NURSE ---
RN into room to assess pt. Pt is currently asleep. is currently asleep at this time. Will continue to monitor.
[2023-04-22] MEDS: levETIRAcetam 500 mg Tablet 1000 MG PO (03:28)
[2023-04-22 04:00] VITALS: BP 125/79; PULSE 84; RESP 16; TEMP 37.3; O2SAT 100
--- NOTE | 2023-04-22 10:44 | DCPLANNER ---
Addendum entered by Jolanta Archer 04/30/23 14:09: Patient has a follow up appointment scheduled for April at 1:[address] Rodriguez at neurology. Original Note: utility sales and service manager had message to schedule a follow up appointment for patient for neurology. utility sales and service manager sent patients information to the front office staff at neurology. Patients information will be printed and reviewed. Clinic will call patient with appointment information.
--- NOTE | 2023-04-24 10:28 | DCPLANNER ---
community services manager called patient due to no primary care physician - no answer at this time.
== END 2023-04-22 04:03 | disposition home or self-care (01) ==
PROVIDERS: Emergency Provider Emergency Medicine
DX: R56.9 Unspecified convulsions (principal); F17.210 Nicotine dependence, cigarettes, uncomplicated
CPT/HCPCS: 70450; 71045; 80053; 80306; 80307; 81001; 83735; 84100; 85025; 93005; 96360; 96361; 99285; J7030

== ENCOUNTER 2023-05-23 20:46 | Emergency (ER) | payer BC, MEDICAID, SELFPAY ==
[2023-05-23 20:49] VITALS: BP 148/89; PULSE 118; RESP 20; TEMP 36.6; O2SAT 93; BMI 18.3
[2023-05-23] MEDS: haloperidol inj 5 mg/mL INJ 1 mL IM (20:54)
[2023-05-23] MEDS: LORazepam 2 mg/mL INJ 1 mL IM (20:54)
[2023-05-23] MEDS: diphenhydrAMINE 50 mg/mL SDV 1mL IM (20:55)
[2023-05-23 21:00] VITALS: BP 117/68; PULSE 103; RESP 19; O2SAT 97
--- NOTE | 2023-05-23 21:01 | ED.C_ITS ---
HPI - Psych General: Chief Complaint: Psychiatric Symptoms Stated Complaint: SEIZURE Time Seen by Provider: 05/23/23 20:47 Source: patient and EMS Mode of arrival: EMS Limitations: no limitations History of Present Illness: 53-year-old female has a long history of drug abuse she also history of seizure s; mother states that she has used drugs recently she is not taking her seizure medications states that she had a seizure today she comes in with EMS she is awake but she is combative screaming yelling at this time. Unable to any history from patient. Review of Systems General: Reports: ROS unobtainable due to mental status PFS ED PFSH: Medical History Drug use Migraine Seizure Tobacco dependence Surgical History Status post coil embolization of cerebral aneurysm Social History Smoking and tobacco status: current every day smoker Substance/Drug Use: current Physical Exam Const: COMMON NORMALS: negative for patient oriented x3 GENERAL APPEARANCE: combative; not cooperative HENMT: COMMON NORMALS: normocephalic and atraumatic HEAD & SCALP: normocephalic and atraumatic Eye: COMMON NORMALS: Equal, round and reactive pupils present and EOMs intact bilaterally PUPIL: Yes Equal, round and reactive pupils present Neck/C-Spine: COMMON NORMALS: full ROM and supple Chest: COMMONS NORMALS: normal inspection of the chest and normal palpation of entire chest wall Resp: COMMON NORMALS: normal respiratory effort, No retractions, No use of accessory muscles and clear to auscultation bilaterally AUSCULTATION: clear to auscultation bilaterally Cardio: COMMON NORMALS: regular rate, regular rhythm and No murmurs present (Cardio) RATE: regular rate RHYTHM: regular rhythm GI: COMMON NORMALS: Normal to inspection, nondistended, normoactive bowel sounds present, Soft to palpation, non-tender and no masses PALPATION: Yes Soft to palpation Extremity: COMMON NORMALS: normal to inspection and full ROM Neuro: COMMON NORMALS: moves all extremities; negative for patient oriented x3 Psych: COMMON NORMALS: negative for cooperative Skin: COMMON NORMALS: no rashes or lesions noted and no wounds GENERAL SKIN EXAM: no rashes or lesions noted Course Vital Signs: Vital signs: Vital Signs Temperature 97.9 F 05/23/23 20:49 Pulse Rate 90 05/23/23 23:15 Respiratory Rate 34 H 05/23/23 23:15 Blood Pressure 104/69 05/23/23 23:15 Pulse Oximetry 97 05/23/23 23:15 [facility] - Psych Medical Decision Making Patient presents here with a possible seizure she is combative and likely postictal when she arrived she also has a history of drug abuse and had used meth recently and this could be the cause as well. She is now awake and alert and calm she is stable for discharge. Medical Records I reviewed the patient's medical records. Lab Data I reviewed the patient's lab results. 05/23/23 20:58 05/23/23 20:58 Laboratory Results WBC 8.15 10^3/uL (3.29-11.43) 05/23/23 20:58 RBC 4.77 10^6/uL (3.85-5.65) 05/23/23 20:58 Hgb 13.60 g/dL (11.27-16.99) 05/23/23 20:58 Hct 43.5 % (36-47) 05/23/23 20:58 MCV 91.2 fl (85-98) 05/23/23 20:58 MCH 28.5 pg (27-33) 05/23/23 20:58 MCHC 31.3 g/dL (30-55) 05/23/23 20:58 RDW 13.7 % (12.1-15.1) 05/23/23 20:58 Plt Count 252 10^3/cmm (157-399) 05/23/23 20:58 MPV 12.2 fL (7.4-10.4) H 05/23/23 20:58 Neut % (Auto) 63.4 % 05/23/23 20:58 Lymph % (Auto) 25.4 % 05/23/23 20:58 [place] % (Auto) 9.9 % 05/23/23 20:58 Eos % (Auto) 0.5 % 05/23/23 20:58 Baso % (Auto) 0.6 % 05/23/23 20:58 Neut # (Auto) 5.16 10^3/uL (1.8-7.7) 05/23/23 20:58 Lymph # (Auto) 2.1 10^3/uL (0.8-4.8) 05/23/23 20:58 [place] # (Auto) 0.8 10^3/uL (0.2-0.9) 05/23/23 20:58 Eos # (Auto) 0.0 10^3/uL (0.0-0.8) 05/23/23 20:58 Baso # (Auto) 0.1 10^3/uL (0.0-0.1) 05/23/23 20:58 Nucleated RBC % (auto) 0 % 05/23/23 20:58 Nucleated RBCs # 0.0 /100WBC 05/23/23 20:58 Sodium 140 mmol/L (136-145) 05/23/23 20:58 Potassium 4.8 mmol/L (3.5-5.1) 05/23/23 20:58 Chloride 100 mmol/L (98-107) 05/23/23 20:58 Carbon Dioxide 30 mmol/L (22-29) H 05/23/23 20:58 Anion Gap 14.8 (5-19) 05/23/23 20:58 BUN 14 mg/dL (6-20) 05/23/23 20:58 Creatinine 0.6 mg/dL (0.5-0.9) 05/23/23 20:58 GFR Calculation 105.0 mL/min (90-130) 05/23/23 20:58 Glucose 125 mg/dL (65-115) H 05/23/23 20:58 Calculated Osmolality 292 mOsm/kg (285-295) 05/23/23 20:58 Calcium 9.8 mg/dL (8.5-10.5) 05/23/23 20:58 Total Bilirubin 0.5 mg/dL (0.15-1.2) 05/23/23 20:58 AST 258 U/L (0-32) H 05/23/23 20:58 ALT 338 U/L (0-33) H 05/23/23 20:58 Alkaline Phosphatase 139 U/L (35-105) H 05/23/23 20:58 Total Protein 7.1 g/dL (6.6-8.7) 05/23/23 20:58 Albumin 4.7 g/dL (3.5-5.2) 05/23/23 20:58 Globulin 2.4 g/dL (1.3-4.6) 05/23/23 20:58 Salicylates < 0.3 mg/dL (3-10) L 05/23/23 20:58 Acetaminophen < 5.0 ug/mL (10-30) L 05/23/23 20:58 Ethyl Alcohol < 10 mg/dL (0-10) 05/23/23 20:58 All radiology interpretation(s) finalized by discharge Discharge Plan Discharge Patient Disposition: Home Clinical Impression: Seizure Condition: Stable Prescriptions: No Action hydrocodone-acetaminophen 5-325 mg tablet 1 tab PO Q6H PRN (Reason: pain (scale score 7-10)) Qty: 12 0RF amoxicillin-pot clavulanate 875-125 mg tablet 1 tab PO BID Qty: 20 0RF Womens Daily Gummies 200 mcg Tablet,Chewable 1 tab PO DAILY Keppra 500 mg tablet 500 mg PO BID Qty: 60 0RF Discharge Orders: Discharge ED (Routine); Ordered 05/24/23 Ordered By: Jhonatan Bey Discharge Diet: Advance as tolerated Discharge Activity: Resume usual activity Patient Instructions: Generalized Tonic Clonic Seizures (ED) Coding Level of Care Code ED Poultry Husbandry Teacher for Kemi Padilla
[2023-05-23 21:15] VITALS: BP 104/63; PULSE 103; RESP 18; O2SAT 95
[2023-05-23 21:26] LABS: Acetaminophen < 5.0 ug/mL (10-30); Alanine Aminotransferase 338 U/L (0-33); Albumin Level 4.7 g/dL (3.5-5.2); Alcohol Level < 10 mg/dL (0-10); Alkaline Phosphatase 139 U/L (35-105); Anion Gap 14.8 (5-19); Aspartate Amino Transferase 258 U/L (0-32); Blood Urea Nitrogen 14 mg/dL (6-20); Calcium 9.8 mg/dL (8.5-10.5); Carbon Dioxide 30 mmol/L (22-29); Chloride 100 mmol/L (98-107); Globulin 2.4 g/dL (1.3-4.6); Glucose 125 mg/dL (65-115); Osmolality Calculated 292 mOsm/kg (285-295); Potassium 4.8 mmol/L (3.5-5.1); Salicylate < 0.3 mg/dL (3-10); Sodium 140 mmol/L (136-145); Total Bilirubin 0.5 mg/dL (0.15-1.2); Total Protein 7.1 g/dL (6.6-8.7)
[2023-05-23 21:37] LABS: Red Blood Count 4.77 10^6/uL (3.85-5.65); White Blood Count 8.15 10^3/uL (3.29-11.43)
[2023-05-23 21:38] LABS: Basophils % 0.6 %; Eosinophils % 0.5 %; Hematocrit 43.5 % (36-47); Lymphocytes % 25.4 %; Mean Corpuscular HGB Conc 31.3 g/dL (30-55); Mean Corpuscular Hemoglobin 28.5 pg (27-33); Mean Corpuscular Volume 91.2 fl (85-98); Mean Platelet Volume 12.2 fL (7.4-10.4); Monocytes % 9.9 %; Neutrophils % 63.4 %; Platelet Count 252 10^3/cmm (157-399); Red Cell Distribution Width 13.7 % (12.1-15.1)
[2023-05-23 21:39] LABS: Basophils # 0.1 10^3/uL (0.0-0.1); Lymphocytes # 2.1 10^3/uL (0.8-4.8); Monocytes # 0.8 10^3/uL (0.2-0.9); Neutrophils # 5.16 10^3/uL (1.8-7.7); Nucleated Red Blood Cells % 0 %
[2023-05-23 22:00] VITALS: BP 113/70; PULSE 93; RESP 28; O2SAT 95
[2023-05-23 23:15] VITALS: BP 104/69; PULSE 90; RESP 34; O2SAT 97
[2023-05-24 00:48] VITALS: BP 114/71; PULSE 89; RESP 27; O2SAT 99
== END 2023-05-24 00:53 | disposition home or self-care (01) ==
PROVIDERS: Emergency Provider Emergency Medicine
DX: R56.9 Unspecified convulsions (principal); F17.210 Nicotine dependence, cigarettes, uncomplicated
CPT/HCPCS: 80053; 80307; 85025; 99284; J1200; J1630; J2060

== ENCOUNTER 2023-11-04 12:57 | Emergency (ER) | payer BC, MEDICAID, SELFPAY ==
[2023-11-04] VITALS (8 sets, daily range): BP systolic 124–145; BP diastolic 73–99; PULSE 92–113; RESP 19–25; O2SAT 93–100; BMI 20.1
--- NOTE | 2023-11-04 13:18 | XRR_ITS ---
PROCEDURE INFORMATION: Exam: XR Chest Exam date and time: 11/04/2023 2:09 PM Age: 53 years old Clinical indication: Other: Seizure; Additional info: Seizure, drug use TECHNIQUE: Imaging protocol: Radiologic exam of the chest. Views: 1 view. COMPARISON: CR XR chest 1V portable [id number] 04/22/2023 1:22 AM FINDINGS: Lungs: Unremarkable. No consolidation. Pleural spaces: Unremarkable. No pleural effusion. No pneumothorax. Heart/Mediastinum: Unremarkable. No cardiomegaly. Bones/joints: Mild-moderate scoliosis. XR/XR chest 1V portable [id number] IMPRESSION: No acute disease.
--- NOTE | 2023-11-04 13:18 | ECG_ITS ---
[facility] Test Date: 2023-11-04 Pat Name: Reanna Muniz Department: Room: Gender: Female Fiber Optics Engineer: : 1970 Requested By: Eduardo Vickers Order Number: [id number] Eugenia MD: Adán Mckeon M.D. Measurements Intervals [place] Rate: 103 P: 82 NC: 153 QRS: -10 QRSD: 93 T: 74 QT: 284 QTc: 372 Interpretive Statements SINUS TACHYCARDIA POSSIBLE LEFT ATRIAL ENLARGEMENT [-0.1mV P-WAVE IN V1/V2] INCOMPLETE RIGHT BUNDLE BRANCH BLOCK [90+ ms QRS DURATION, TERMINAL R IN V1/V2, 40+ ms S IN I/aVL/V4/V5/V6] SEPTAL MYOCARDIAL INFARCTION , OF INDETERMINATE AGE [40+ ms Q WAVE IN V1/V2] Compared to ECG 04/22/2023 01:31:11 Incomplete right bundle-branch block now present Left-axis deviation no longer present Myocardial infarct finding still present Electronically Signed On 11-04-2023 14:21:36 CDT by Adán Mckeon M.D. [id number]
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
[2023-11-04] MEDS: ketamine 100 mg/mL Inj 5 mL IM (13:43)
[2023-11-04] MEDS: LORazepam 2 mg/mL INJ 10 mL MDV IM (13:43)
[2023-11-04 13:58] LABS: Basophils % 0.2 %; Hematocrit 42.9 % (36-47); Lymphocytes # 1.4 10^3/uL (0.8-4.8); Lymphocytes % 16.1 %; Mean Corpuscular HGB Conc 32.4 g/dL (30-55); Mean Corpuscular Hemoglobin 29.2 pg (27-33); Mean Corpuscular Volume 90.1 fl (85-98); Mean Platelet Volume 12.6 fL (7.4-10.4); Monocytes # 0.7 10^3/uL (0.2-0.9); Monocytes % 8.3 %; Neutrophils # 6.31 10^3/uL (1.8-7.7); Nucleated Red Blood Cells % 0 %; Platelet Count 160 10^3/cmm (157-399); Red Blood Count 4.76 10^6/uL (3.85-5.65); Red Cell Distribution Width 13.8 % (12.1-15.1); White Blood Count 8.41 10^3/uL (3.29-11.43)
[2023-11-04 14:17] LABS: Troponin(5th) Baseline 8 ng/L (0-10)
[2023-11-04 14:56] LABS: Alanine Aminotransferase 51 U/L (0-33); Albumin Level 4.1 g/dL (3.5-5.2); Alkaline Phosphatase 100 U/L (35-105); Aspartate Amino Transferase 44 U/L (0-32); Blood Urea Nitrogen 14 mg/dL (6-20); Calcium 8.7 mg/dL (8.5-10.5); Carbon Dioxide 23 mmol/L (22-29); Chloride 99 mmol/L (98-107); Creatine Phosphokinase 262 U/L (26-192); Creatinine Clr Calc Pharmacy 74.2331; Globulin 2.5 g/dL (1.3-4.6); Glomerular Filtration Rate 87.9 mL/min (90-130); Glucose 115 mg/dL (65-115); Magnesium 1.8 mg/dL (1.7-2.3); Osmolality Calculated 287 mOsm/kg (285-295); Sodium 138 mmol/L (136-145); Total Bilirubin 0.5 mg/dL (0.15-1.2); Total Protein 6.6 g/dL (6.6-8.7)
[2023-11-04 14:57] LABS: Acetaminophen < 5.0 ug/mL (10-30); Alcohol Level < 10 mg/dL (0-10); Salicylate < 0.3 mg/dL (3-10)
[2023-11-04 15:01] LABS: Prolactin 16.43 ng/mL (4.8-23.3)
[2023-11-04 16:27] LABS: Troponin 5 2HR 7.22 ng/L (0-10)
[2023-11-04 16:37] LABS: Troponin 5 2HR Delta -0.78 ABS# (0-10)
== END 2023-11-04 18:04 | disposition home or self-care (01) ==
PROVIDERS: Physician Assistant; Emergency Provider Emergency Medicine
DX: R56.9 Unspecified convulsions (principal); F11.23 Opioid dependence with withdrawal; Z72.0 Tobacco use
CPT/HCPCS: 36415; 71045; 80053; 80307; 82550; 83735; 84146; 84484; 85025; 93005; 96372; 99285; J2060; J3490

== ENCOUNTER 2023-11-22 14:19 | Emergency (ER) | payer BC, MEDICAID, SELFPAY ==
--- NOTE | 2023-11-22 14:27 | PC.PHAR ---
pt unable to verify medications-medications entered are what [facility] they have filled for the pt recently-pt was seen in er on 11/04/23 medications entered are what was prescribed on er visit
[2023-11-22 14:41] LABS: Arterial Blood Gas Hematocrit 42.8 % (37-47); Base Excess ABG -23.2 mmol/L (-2.0-2.0); Blood Gas Allen Test Pos; Blood Gas Operator Identificat WALCI; Blood Gas Sample Site Brachial, left; Blood Gas Sample Type Arterial; Carboxyhemoglobin 3.1 %THgb (0.4-20.1); HCO3 ABG 12.7 mmol/L (22-26); HGB O2 Sat 81.2 % (95-100); Ionized Calcium Level - ABG 1.2 mmol/L (1.1-1.4); Methemoglobin 0.8 % (0.4-1.5); Oxygen Device AMBU; Oxygen Saturation ABG 84.5; PO2 ABG 86.6 mmHg (80.0-100.0)
[2023-11-22 14:42] LABS: ABG PCO2 81.8 mmHg (35-45)
--- NOTE | 2023-11-22 14:51 | ED_ITS ---
HPI - General Adult General: Stated complaint: Possible OD Time Seen by Provider: 11/22/23 14:49 Mode of arrival: other (Carried in by man) Limitations: physical limitation History of Present Illness: Patient was carried into the ER waiting unresponsive and was immediately brought back into the trauma bay. Patient had no pulse and was not breathing on her own. CPR was started immediately. No history was immediately known. Patient was intubated CPR was continued and ACLS measures. Patient was given Narcan 0.4 mg, approximately 6 rounds of epi, 2 A of bicarb, and had 1 L normal saline infused. Patient was undergoing CPR for approximately 25 minutes. We exhausted all resuscitative measures and call time of at 1447. 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 Cardio: OTHER: No heart rate noted. GI: COMMON NORMALS: Soft to palpation INSPECTION: Yes normal to inspection PALPATION: Yes Soft to palpation Neuro: OTHER: Unresponsive to painful stimuli with no pulse or respiratory effort noted. Procedures Intubation Time out performed: Yes sedative: none paralytic: other (None) Laryngoscope: fiber optic video scope ET Tube Size: 8 Tube Secured Depth (cm): 26 Tube Secured Location: lips Tube Placement Confirmation: visualized tube passing through cords, equal breath sounds bilaterally, no breath sounds over epigastrium and confirmation by capnometry Patient Tolerated Procedure: well and no complications MDM - General Adult Medical Decision Making Patient was carried in to the waiting room unresponsive. Patient was placed in a wheelchair and wheeled back to room 11 while CPR was being performed. Patient was unresponsive to painful stimuli. No heart rate or respiratory rate were noted. CPR was being performed and ACLS was started. Patient was intubated with an 8 oh ET tube without sedation or paralytic with no response and no complication. IV was established as well as an IO. Patient was bolused a liter of normal saline under pressure bag while CPR was being performed. Patient was given approximately a total of 2 A of bicarb, 6 A of epi, 0.4 of Narcan, multiple pulse checks. Patient continued to be asystolic with no response to medicine. Time of was called at 1447. Differential Diagnosis Acute cardiopulmonary arrest Lab Data Laboratory Results Specimen Type Arterial 11/22/23 14:31 Sample Site Brachial, left 11/22/23 14:31 ABG pH 6.80 (7.35-7.45) L* 11/22/23 14:31 ABG pCO2 81.8 mmHg (35-45) H* 11/22/23 14:31 ABG pO2 86.6 mmHg (80.0-100.0) 11/22/23 14:31 ABG HCO3 12.7 mmol/L (22-26) L 11/22/23 14:31 ABG O2 Saturation 84.5 11/22/23 14:31 ABG Base Excess -23.2 mmol/L (-2.0-2.0) L 11/22/23 14:31 Saqib Test Pos 11/22/23 14:31 A-a O2 Gradient Not Reportable 11/22/23 14:31 Hematocrit 42.8 % (37-47) 11/22/23 14:31 Hgb O2 Saturation 81.2 % (95-100) L 11/22/23 14:31 Carboxyhemoglobin 3.1 %THgb (0.4-20.1) 11/22/23 14:31 Methemoglobin 0.8 % (0.4-1.5) 11/22/23 14:31 Total Hemoglobin 14.0 g/dL (12-16) 11/22/23 14:31 Sodium 146.0 mmol/L (131-143) H 11/22/23 14:31 Potassium 8.0 mmol/L (3.5-5.0) H 11/22/23 14:31 Glucose 424.0 mg/dL (70-115) H 11/22/23 14:31 Ionized Calcium 1.2 mmol/L (1.1-1.4) 11/22/23 14:31 O2 Delivery Device Ambu 11/22/23 14:31 O2 Liters/Min 15.0 % 11/22/23 14:31 Hogshead Inspector ID [email or web address] 11/22/23 14:31 No radiology studies performed this visit Critical Care Time Critical Care Time: Critical Care Time: Yes Total Critical Care Time: 25 Attestation: The patient was emergently evaluated this patient's presentation and case had a high probability of a clinically significant, sudden, or life-threatening deterioration of the patient's initial critical presentation or condition which required my full and direct attention, intervention and personal management. Discharge Plan Discharge Patient Disposition: Clinical Impression: Cardiopulmonary arrest Condition: Stable Prescriptions: No Action levetiracetam [Keppra] 500 mg tablet 500 mg PO BID Qty: 60 0RF potassium chloride 20 mEq tablet extended release 20 meq PO DAILY Qty: 10 0RF Rx Instructions: for 10 days (rx filled 11/04/23) Coding Level of Care Code ED [employer] for Kemi Padilla
--- NOTE | 2023-11-22 14:58 | PC.NURSE ---
Code Blue; Patient arrived by POV @1440 in Cardiac/Resp arrest. Code blue called overhead @1440 1420-CPR 1422-Pulse Check/Asystole/CPR resumed 1422-Intubated w/ 8.0 ETT. 26 @lip 1423-IO placed to left leg 1424-Pulse Check/Asystole/CPR resumed 1424-Narcan IVP 1425-1L Bolus NS 1426-Pulse Check/Asystole/CPR resumed 1426-Amp Bicarb IVP 1428-Pulse Check/Asystole/CPR resumed 1428-Epi IVP 1429-20G IV to right Forearm 1430-Pulse Check/Asystole/CPR resumed 1431-Epi IVP 1432-Pulse Check/Asystole/CPR resumed 1434-Pulse Check/Asystole/CPR resumed 1434-Epi IVP 1436-Pulse Check/Asystole/CPR resumed 1437-Epi IVP 1437-2nd IO placed to right leg 1438-Pulse Check/Asystole/CPR resumed 1440-Epi IVP 1440-Pulse Check/Asystole/CPR resumed 1442-Pulse Check/Asystole/CPR resumed 1443-Epi IVP 1444-Pulse Check/Asystole/CPR resumed 1446-Amp Bicarb IVP 1446-Pulse Check/Asystole 1447- T.O.D called by Dr Vickers
--- NOTE | 2023-11-22 15:12 | PC.NURSE ---
PT REQUESTED 'S JEWELRY REMOVED FROM BODY. THIS NURSE REMOVED ALL JEWELRY AND PLACED IN PATIENT LABELED BAG. JEWELRY INCLUDED ONE CLEAR STONED SILVER RING, ONE BRONZE COLORED RING AND ONE SINGLE BLACK COLORED STUD EARRING. JEWELRY GIVEN TO SECURITY PER Tasha HERBERT INSTRUCTION.
--- NOTE | 2023-11-22 16:04 | PC.NURSE ---
MTS and Saving site notified of patient passing/TOD. Patient released by both at this time. Primary nurse notified of their decision. [facility] Motta, notified of patient passing. Ref#[id number]
== END 2023-11-22 17:03 | disposition expired ==
PROVIDERS: Emergency Provider Emergency Medicine
DX: I46.9 Cardiac arrest, cause unspecified (principal); Z72.0 Tobacco use
CPT/HCPCS: 31500; 36600; 80051; 82330; 82805; 94799; 99285; 99291; 99292